=== PATIENT | female | born 1970 | race African-American/Black ===

== ENCOUNTER 2018-11-15 14:49 | Inpatient (IN) | payer OTHER ==
[2018-11-15 17:29] VITALS: BMI 24.0
--- NOTE | 2018-11-15 21:14 | HP ---
CIWA Score Nausea/Vomitin-No Nausea/No Vomiting Muscle Tremors: None Anxiety: 2 Agitation: 2 Paroxysmal Sweats: No Perspiration Orientation: 0-Oriented Tacttile Disturbances: 0-None Auditory Disturbances: 0-None Visual Disturbances: 0-None Headache: 0-None Present CIWA-Ar Total Score: 4 - Admission Criteria OASAS Guidelines: Admission for Medically Managed Detox: Requires at least one of the followin. CIWA greater than 12 2. Seizures within the past 24 hours 3. Delirium tremens within the past 24 hours 4. Hallucinations within the past 24 hours 5. Acute intervention needed for co occurring medical disorder 6. Acute intervention needed for co occurring psychiatric disorder 7. Severe withdrawal that cannot be handled at a lower level of care (continued vomiting, continued diarrhea, abnormal vital signs) requiring intravenous medication and/or fluids 8. Admission ROS [facility] Chief Complaint: rehab admission for alcohol and cocaine 48 yo with h/o HIV, asthma, seizure d/o, HTN, PTSD, depression, schizophrenia, bipolar and personality disorder, was admitted to [facility] in the [facility] for suicide ideation for about 3 days. Was transported here directly from the hospital. Feeling fine. Pt states she would like to do to rehab. CIWA 4- agitated b.c of the wait here. HIV meds- pt's last VL 2K and CD4 500 per pt. restarted meds yesterday at the hospital. need to verify with pharmacy re regimen alcohol- a lot- does not want to specify cocaine $200/day no other illicit drugs DUR- no recent meds Allergies/Adverse Reactions: Allergies Allergy/AdvReac Type Severity Reaction Status Date / Time tomato Allergy Intermediate Rash/Itchin Verified 11/15/18 17:07 ess No Known Drug Allergies Allergy Verified 11/15/18 17:07 - Ebola screening Have you traveled outside of the country in the last 21 days: No (N) Have you had contact with anyone from an Ebola affected area: No Do you have a fever: No Patient History - Patient Medical History Hx Anemia: Yes (NOT CURRENTLY ON IRON PILLS) Hx Asthma: Yes (Tx with Advair & MDI) Hx Chronic Obstructive Pulmonary Disease (COPD): No Hx Cancer: No Hx Cardiac Disorders: No Hx Congestive Heart Failure: No Hx Hypertension: No Hx Hypercholesterolemia: No Hx Pacemaker: No HX Cerebrovascular Accident: No Hx Seizures: No Hx Dementia: No Hx Diabetes: No Hx Gastrointestinal Disorders: No Hx Liver Disease: No Hx Genitourinary Disorders: No Hx Sexually Transmitted Disorders: Yes (SYPHILIS) Hx Renal Disease (ESRD): No Hx Thyroid Disease: No Hx Human Immunodeficiency Virus (HIV): Yes (started taking meds yesterday at hospital) Hx Hepatitis C: No Hx Depression: Yes Hx Suicide Attempt: Yes (Jumped out window "years ago",[place]UTTER 2014) Hx Bipolar Disorder: Yes Hx Schizophrenia: Yes - Patient Surgical History Past Surgical History: No Hx Neurologic Surgery: No Hx Cataract Extraction: No Hx Cardiac Surgery: No Hx Lung Surgery: No Hx Breast Surgery: No Hx Breast Biopsy: No Hx Abdominal Surgery: No Hx Appendectomy: No Hx Cholecystectomy: No Hx Genitourinary Surgery: No Hx Section: No Hx Orthopedic Surgery: No Hx Hysterectomy: No Anesthesia Reaction: No - PPD History Documented Results: Negative w/o proof Date: 11/20/15 Results: NEGATIVE - Reproductive History Last Menstrual Period: 11/05/15 Patient : No - Smoking Cessation Smoking history: Former smoker Have you smoked in the past 12 months: Yes Aproximately how many cigarettes per day: 0 Cigars Per Day: 0 Hx Chewing Tobacco Use: No Initiated information on smoking cessation: Yes 'Breaking Loose' booklet given: 11/15/18 - Substance & Tx. History Hx Alcohol Use: Yes Hx Substance Use: Yes Substance Use Type: Alcohol, Cocaine Hx Substance Use Treatment: Yes - Substances abused Crack Substance route: Smoking Frequency: Daily Amount used: 100 dollars Age of first use: 18 Date of last use: 11/12/18 Alcohol Substance route: Oral Frequency: Daily Amount used: a lot' Age of first use: 21 Date of last use: 11/12/18 Admission Physical Exam [facility] - Vital Signs Vital Signs: Vital Signs - 24 hr 11/15/18 17:22 Temperature 97.6 F Pulse Rate 76 Respiratory 16 Rate Blood Pressure 117/86 Breathalyzer - Breathalyzer Breathalyzer: 0 Urine Drug Screen - Test Device Lot number: [id number] Expiration date: 08/04/20 - Control Is test valid?: Yes - Results Drug screen NEGATIVE: No Urine drug screen results: REBECA-Cocaine Inpatient Rehab Admission - Rehab Decision to Admit Inpatient rehab admission?: Yes - Initial Determination Are CD services needed?: Yes Free of communicable disease: Yes Not in need of hospitalization: Yes - Rehab Admission Criteria Previous failed treatment: Yes Poor recovery environment: Yes Comorbidities: Yes Lacks judgement: Yes Patient is meeting Inpatient Rehab admission criteria:: Yes (cocaine and alcohol rehab)
[2018-11-15] MEDS ORDERED: NICOTINE POLACRILEX 2 MG GUM BC PRN (21:25)
[2018-11-15] MEDS ORDERED: MAGNESIUM CITRATE 300 ML BOTTLE PO PRN (21:25)
[2018-11-15] MEDS ORDERED: hydrOXYzine PAMOATE 25 MG CAPSULE (FP) PO PRN (21:25)
[2018-11-15] MEDS ORDERED: IBUPROFEN 400 MG TABLET (FP) PO PRN (21:25)
[2018-11-15] MEDS ORDERED: ACETAMINOPHEN 325 MG TABLET (FP) PO PRN (21:25)
[2018-11-15] MEDS ORDERED: LOPERAMIDE HCL 2 MG CAPSULE PO PRN (21:25)
[2018-11-15] MEDS ORDERED: guaiFENesin 200 MG/10 ML 10 ML UNIT-DOSE CUPS PO PRN (21:25)
[2018-11-15] MEDS ORDERED: MAG HYDROX/AL HYDROX/SIMETH 30 ML UNIT-DOSE CUP PO PRN (21:25)
[2018-11-15] MEDS ORDERED: MENTHOL/PHENOL 1 EACH UD MM PRN (21:25)
[2018-11-15] MEDS ORDERED: P-EPHED 60MG/TRIPROLIDI 2.5MG TABLET PO PRN (21:25)
[2018-11-15] MEDS ORDERED: MAGNESIUM HYDROX 2400MG/30ML ORAL SUSPENSION 30 ML CUP PO PRN (21:25)
[2018-11-15] MEDS ORDERED: ALBUTEROL SO4 8 GM HFA INHALER IH PRN (21:26)
[2018-11-15] MEDS ORDERED: GABAPENTIN 300 MG CAPSULE (FP) PO PRN (21:29)
[2018-11-15] MEDS ORDERED: GABAPENTIN 300 MG CAPSULE (FP) PO SCH (22:00)
[2018-11-15] MEDS ORDERED: MELATONIN 5 MG TABLETS PO PRN (22:00)
[2018-11-15] MEDS ORDERED: TUBERCULIN PPD 5 TU/0.1ML VIAL ID ONE (22:45)
[2018-11-15] MEDS: QUEtiapine FUMARATE 200 MG TABLET PO SCH (22:47)
[2018-11-15] MEDS: THIAMINE HCL 100 MG TABLET (FP) PO SCH (22:47)
[2018-11-15] MEDS: DIVALPROEX SODIUM 500 MG TABLET E.C. PO SCH (22:47)
[2018-11-16] MEDS ORDERED: PT OWN MED DRAWER 7, Y5N ONE (08:28)
[2018-11-16] MEDS: DIVALPROEX SODIUM 500 MG TABLET E.C. PO SCH ×2 (09:48→21:55)
[2018-11-16] MEDS: HYDROCHLOROTHIAZIDE 12.5 MG CAPSULE (FP) PO SCH (09:49)
[2018-11-16] MEDS: QUEtiapine FUMARATE 200 MG TABLET PO SCH ×2 (09:49→21:55)
[2018-11-16] MEDS: amLODIPine BESYLATE 10 MG TABLET (FP) PO SCH (09:49)
[2018-11-16] MEDS: PRENATAL VITAMINS W/ FOLIC ACID TABLET (FP) PO SCH (09:49)
[2018-11-16] MEDS: EMTRICITAB/RILPIVIRI/TENOF ALA (ODEFSEY) TABLET PO SCH (10:17)
[2018-11-16 12:20] LABS: EPI CELLS 15.9 /HPF (0-5/HPF); HYALINE CASTS 8 /lpf (0-8); URINE APPEARANCE CLOUDY; URINE BACTERIA 85.7 /hpf (NEGATIVE); URINE BILIRUBIN NEGATIVE (NEGATIVE); URINE COLOR YELLOW; URINE GLUCOSE (UA) NEGATIVE (NEGATIVE); URINE KETONE TRACE (NEGATIVE); URINE LEUK ESTERASE 2+ (NEGATIVE); URINE NITRITE NEGATIVE (NEGATIVE); URINE PROTEIN NEGATIVE (NEGATIVE); URINE UROBILINOGEN 0.2 mg/dL (0.2-1.0); URINE WBC 9 /hpf (0-5)
[2018-11-16 12:29] LABS: ALBUMIN 2.8 g/dl (3.4-5.0); BILIRUBIN,TOTAL 0.2 mg/dL (0.2-1); BLOOD UREA NITROGEN 19.4 mg/dL (7-18); CALCIUM 9.5 mg/dL (8.5-10.1); CREATININE 0.9 mg/dL (0.55-1.3); POTASSIUM 4.2 mmol/L (3.5-5.1); TOT PROT 6.9 g/dl (6.4-8.2)
[2018-11-16 12:36] LABS: HEMATOCRIT 36.3 % (32.4-45.2); HEMOGLOBIN 11.8 GM/dL (10.7-15.3); MCH 30.7 pg (25.7-33.7); MCHC 32.6 g/dl (32.0-36.0); MEAN PLT VOLUME 8.2 fl (7.5-11.1); RBC 3.86 M/mm3 (3.60-5.2); RDW 16.7 % (11.6-15.6); WHITE BLOOD COUNT 4.3 K/mm3 (4.0-10.0)
[2018-11-16 12:39] LABS: URINE CRYSTALS 3+ /hpf; URINE RBC 2 /hpf (0-4)
[2018-11-16 12:40] LABS: PLATELET COUNT 190 K/MM3 (134-434)
[2018-11-16] MEDS: THIAMINE HCL 100 MG TABLET (FP) PO SCH (21:56)
--- NOTE | 2018-11-17 09:04 | CONSULT ---
[facility] Psychiatric Consult - Data Date of interview: 11/17/18 Admission source: [facility] Identifying data: Patient is a 48 year old single female, without children, unemployed, and is supported by [employer]. This is one of multiple admissions for patient. Patient admitted to for alcohol dependence. Substance Abuse History: Smoking Cessation. Smoking history: Former smoker. Have you smoked in the past 12 months: Yes. Aproximately how many cigarettes per day: 0. Cigars Per Day: 0. Hx Chewing Tobacco Use: No. Initiated information on smoking cessation: Yes. 'Breaking Loose' booklet given: . - Substance & Tx. History. Hx Alcohol Use: Yes. Hx Substance Use: Yes. Substance Use Type: Alcohol, Cocaine. Hx Substance Use Treatment: Yes. - Substances abused. Crack. Substance route: Smoking. Frequency: Daily. Amount used: 100 dollars. Age of first use: 18. Date of last use: 11/12/18. * * Alcohol. Substance route: Oral. Frequency: Daily. Amount used: a lot'. Age of first use: 21. Date of last use: 11/12/18 Medical History: h/o HIV, asthma, seizure d/o, HTN Psychiatric History: Patient presents as irritable and is unwilling to provide a cohesive psychiatric history. Patient reports h/o multiple psychiatric hospitalizations. States she was recently in the [facility] a few days ago after stating she was suicidal because she wanted to be admitted to the detox/rehab unit [facility]. Subsequently she was transferred to [facility] rehab. She reports past diagnosis of personality disorder, PTSD, Biplar disorder and schizophrenia. She denies current outpatient psychiatric care. States she receives psychotropic medications from her primary care physician. Patient presents with a convoluted history and is irritable which make it difficult to obtain a cohesive history. Patient reports taking seroquel 400mg BID + Depakote 500mg ER BID + Gabapentin 300mg TID (medications bottle witness by communications writer in the security office). At present patient is irritable. Physical/Sexual Abuse/Trauma History: Decline to answer. Mental Status Exam - Mental Status Exam Alert and Oriented to: Time, Place, Person Cognitive Function: Fair Patient Appearance: Unkempt Mood: Irritable Affect: Mood Congruent Patient Behavior: Agitated (Agitated and irritable and redirectable) Speech Pattern: Clear Voice Loudness: Normal Thought Process: Goal Oriented Thought Disorder: Not Present Hallucinations: Denies Suicidal Ideation: Denies Homicidal Ideation: Denies Insight/Judgement: Poor Sleep: Fair Appetite: Fair Muscle strength/Tone: Normal Gait/Station: Normal Psychiatric Findings - Problem List ([place] 1, 2,3) (1) Alcohol dependence Current Visit: Yes Status: Chronic (2) Cocaine dependence Current Visit: Yes Status: Chronic (3) Bipolar disorder Current Visit: Yes Status: Chronic (4) Substance induced mood disorder Current Visit: Yes Status: Acute - Initial Treatment Plan Initial Treatment Plan: Psychoeducation provided. Rehab in progress. Will continue Seroquel 400mg BID + Depakote 500mg ER BID + Gabapentin 300mg TID. Medications verified by witnessing medications bottle in the Security office. Benefits and side effects discussed. Verbal consent given.
[2018-11-17] MEDS: QUEtiapine FUMARATE 200 MG TABLET PO SCH ×2 (09:38→21:57)
[2018-11-17] MEDS: DIVALPROEX SODIUM 500 MG TABLET E.C. PO SCH (09:39)
[2018-11-17] MEDS: HYDROCHLOROTHIAZIDE 12.5 MG CAPSULE (FP) PO SCH (09:39)
[2018-11-17] MEDS: amLODIPine BESYLATE 10 MG TABLET (FP) PO SCH (09:39)
[2018-11-17] MEDS: PRENATAL VITAMINS W/ FOLIC ACID TABLET (FP) PO SCH (09:39)
[2018-11-17] MEDS: EMTRICITAB/RILPIVIRI/TENOF ALA (ODEFSEY) TABLET PO SCH (09:40)
[2018-11-17] MEDS: THIAMINE HCL 100 MG TABLET (FP) PO SCH (21:56)
[2018-11-17] MEDS: DIVALPROEX NA *ER* EXTEND REL 500 MG TABLET.SA (FP) PO SCH (21:57)
--- NOTE | 2018-11-18 10:03 | PN ---
[facility] Progress Note Note: METHADONE 80 MG PO DAILY RENEWED. METHADONE 80 MG PO X 1 DOSE TODAY. Vital Signs - 24 hr 11/18/18 11/18/18 11/18/18 00:30 03:30 07:13 Pulse Rate Respiratory 17 16 16 Rate Blood Pressure 11/18/18 09:19 Pulse Rate 80 Respiratory 18 Rate Blood Pressure 120/82 Laboratory Tests 11/15/18 11/16/18 11/16/18 20:30 09:20 09:20 WBC 4.3 RBC 3.86 Hgb 11.8 Hct 36.3 MCV 94.0 MCH 30.7 MCHC 32.6 RDW 16.7 H Plt Count 190 MPV 8.2 Sodium 139 Potassium 4.2 Chloride 102 Carbon Dioxide 29 Anion Gap 7 L BUN 19.4 H Creatinine 0.9 Est GFR (CKD-EPI)AfAm 88.25 Est GFR (CKD-EPI)NonAf 76.14 Random Glucose 109 H Calcium 9.5 Total Bilirubin 0.2 AST 38 H ALT 40 Alkaline Phosphatase 92 Total Protein 6.9 Albumin 2.8 L Urine Color Urine Appearance Urine pH Ur Specific [place] Urine Protein Urine Glucose (UA) Urine Ketones Urine Blood Urine Nitrite Urine Bilirubin Urine Urobilinogen Ur Leukocyte Esterase Urine WBC (Auto) Urine RBC (Auto) Urine Casts (Auto) U Epithel Cells (Auto) Urine Crystals (Auto) Urine Bacteria (Auto) POC Urine HCG, Qual Negative RPR Titer 11/16/18 11/16/18 09:20 10:00 WBC RBC Hgb Hct MCV MCH MCHC RDW Plt Count MPV Sodium Potassium Chloride Carbon Dioxide Anion Gap BUN Creatinine Est GFR (CKD-EPI)AfAm Est GFR (CKD-EPI)NonAf Random Glucose Calcium Total Bilirubin AST ALT Alkaline Phosphatase Total Protein Albumin Urine Color Yellow Urine Appearance Cloudy Urine pH 6.0 Ur Specific [place] 1.029 Urine Protein Negative Urine Glucose (UA) Negative Urine Ketones Trace H Urine Blood Negative Urine Nitrite Negative Urine Bilirubin Negative Urine Urobilinogen 0.2 Ur Leukocyte Esterase 2+ H Urine WBC (Auto) 9 Urine RBC (Auto) 2 Urine Casts (Auto) 8 U Epithel Cells (Auto) 15.9 Urine Crystals (Auto) 3+ Urine Bacteria (Auto) 85.7 POC Urine HCG, Qual RPR Titer Nonreactive LABS NOTED ASYMPTOMATIC INCREASE PO FLUIDS REPEAT UA.
[2018-11-18] MEDS: PRENATAL VITAMINS W/ FOLIC ACID TABLET (FP) PO SCH (10:05)
[2018-11-18] MEDS: DIVALPROEX NA *ER* EXTEND REL 500 MG TABLET.SA (FP) PO SCH ×2 (10:05→21:31)
[2018-11-18] MEDS: QUEtiapine FUMARATE 200 MG TABLET PO SCH ×2 (10:06→21:30)
[2018-11-18] MEDS: HYDROCHLOROTHIAZIDE 12.5 MG CAPSULE (FP) PO SCH (10:06)
[2018-11-18] MEDS: amLODIPine BESYLATE 10 MG TABLET (FP) PO SCH (10:06)
[2018-11-18] MEDS ORDERED: PT OWN MED DRAWER 7, Y5N ONE (10:08)
[2018-11-18] MEDS: EMTRICITAB/RILPIVIRI/TENOF ALA (ODEFSEY) TABLET PO SCH (10:08)
[2018-11-18 19:50] LABS: EPI CELLS 3.9 /HPF (0-5/HPF); HYALINE CASTS 0 /lpf (0-8); PH,URINE 5.5 (5.0-8.0); URINE APPEARANCE CLEAR; URINE BACTERIA 29.6 /hpf (NEGATIVE); URINE BILIRUBIN NEGATIVE (NEGATIVE); URINE COLOR YELLOW; URINE GLUCOSE (UA) NEGATIVE (NEGATIVE); URINE KETONE NEGATIVE (NEGATIVE); URINE LEUK ESTERASE TRACE (NEGATIVE); URINE NITRITE NEGATIVE (NEGATIVE); URINE PROTEIN NEGATIVE (NEGATIVE); URINE RBC 1 /hpf (0-4); URINE UROBILINOGEN 0.2 mg/dL (0.2-1.0); URINE WBC 2 /hpf (0-5)
[2018-11-18] MEDS: THIAMINE HCL 100 MG TABLET (FP) PO SCH (21:30)
[2018-11-19] MEDS ORDERED: PT OWN MED DRAWER 7, Y5N ONE (08:44)
[2018-11-19] MEDS: QUEtiapine FUMARATE 200 MG TABLET PO SCH ×2 (09:30→21:36)
[2018-11-19] MEDS: amLODIPine BESYLATE 10 MG TABLET (FP) PO SCH (09:31)
[2018-11-19] MEDS: PRENATAL VITAMINS W/ FOLIC ACID TABLET (FP) PO SCH (09:31)
[2018-11-19] MEDS: HYDROCHLOROTHIAZIDE 12.5 MG CAPSULE (FP) PO SCH (09:31)
[2018-11-19] MEDS: DIVALPROEX NA *ER* EXTEND REL 500 MG TABLET.SA (FP) PO SCH ×2 (09:31→21:36)
[2018-11-19] MEDS: EMTRICITAB/RILPIVIRI/TENOF ALA (ODEFSEY) TABLET PO SCH (09:33)
[2018-11-19] MEDS: THIAMINE HCL 100 MG TABLET (FP) PO SCH (21:35)
[2018-11-20] MEDS: QUEtiapine FUMARATE 200 MG TABLET PO SCH ×2 (09:28→21:14)
[2018-11-20] MEDS: EMTRICITAB/RILPIVIRI/TENOF ALA (ODEFSEY) TABLET PO SCH (09:28)
[2018-11-20] MEDS: DIVALPROEX NA *ER* EXTEND REL 500 MG TABLET.SA (FP) PO SCH ×2 (09:28→21:14)
[2018-11-20] MEDS: PRENATAL VITAMINS W/ FOLIC ACID TABLET (FP) PO SCH (09:28)
[2018-11-20] MEDS: HYDROCHLOROTHIAZIDE 12.5 MG CAPSULE (FP) PO SCH (09:28)
[2018-11-20] MEDS: amLODIPine BESYLATE 10 MG TABLET (FP) PO SCH (09:28)
[2018-11-20] MEDS ORDERED: PT OWN MED DRAWER 7, Y5N ONE ×2 (19:42→22:01)
[2018-11-20] MEDS: THIAMINE HCL 100 MG TABLET (FP) PO SCH (21:14)
[2018-11-21 07:02] VITALS: PULSE 88; TEMP 97.4
[2018-11-21 11:05] VITALS: BP 95/67
[2018-11-21] MEDS: HYDROCHLOROTHIAZIDE 12.5 MG CAPSULE (FP) PO SCH (11:39)
[2018-11-21] MEDS: DIVALPROEX NA *ER* EXTEND REL 500 MG TABLET.SA (FP) PO SCH (11:39)
[2018-11-21] MEDS: amLODIPine BESYLATE 10 MG TABLET (FP) PO SCH (11:40)
[2018-11-21] MEDS: PRENATAL VITAMINS W/ FOLIC ACID TABLET (FP) PO SCH (11:40)
[2018-11-21] MEDS: QUEtiapine FUMARATE 200 MG TABLET PO SCH (11:40)
[2018-11-21] MEDS: EMTRICITAB/RILPIVIRI/TENOF ALA (ODEFSEY) TABLET PO SCH (11:40)
--- NOTE | 2018-11-21 11:57 | PN ---
[facility] Progress Note Note: Notified by RN patient requested to sign out AMA. Patient evaluated by provider and stated she has a rash/itching and wants to be seen/treated by her regular provider/PCP Dr. Quintana. Patient encouraged to continue with rehab treatment for ETOH/Cocaine dependence but patient refused. Patient does not have visible rash on extremities and or face but offered soap/cream for symptoms. Patient refused and verbalized preference to see PCP. Patient encouraged to attend group meetings AA/NA and to follow up with PCP today. Patient also explained risk factors of relapse with signing out AMA and verbalized understanding of all information provided. Patient continued with AMA process after speaking with provider. Vital Signs Temperature 97.4 F L 11/21/18 07:02 Pulse Rate 88 11/21/18 10:00 Respiratory Rate 18 11/21/18 07:02 Blood Pressure 95/67 11/21/18 10:00 O2 Sat by Pulse Oximetry (%) Laboratory Tests 11/15/18 11/16/18 11/16/18 20:30 09:20 09:20 WBC 4.3 RBC 3.86 Hgb 11.8 Hct 36.3 MCV 94.0 MCH 30.7 MCHC 32.6 RDW 16.7 H Plt Count 190 MPV 8.2 Sodium 139 Potassium 4.2 Chloride 102 Carbon Dioxide 29 Anion Gap 7 L BUN 19.4 H Creatinine 0.9 Est GFR (CKD-EPI)AfAm 88.25 Est GFR (CKD-EPI)NonAf 76.14 Random Glucose 109 H Calcium 9.5 Total Bilirubin 0.2 AST 38 H ALT 40 Alkaline Phosphatase 92 Total Protein 6.9 Albumin 2.8 L Urine Color Urine Appearance Urine pH Ur Specific [place] Urine Protein Urine Glucose (UA) Urine Ketones Urine Blood Urine Nitrite Urine Bilirubin Urine Urobilinogen Ur Leukocyte Esterase Urine WBC (Auto) Urine RBC (Auto) Urine Casts (Auto) U Epithel Cells (Auto) Urine Crystals (Auto) Urine Bacteria (Auto) POC Urine HCG, Qual Negative RPR Titer 11/16/18 11/16/18 11/18/18 09:20 10:00 15:15 WBC RBC Hgb Hct MCV MCH MCHC RDW Plt Count MPV Sodium Potassium Chloride Carbon Dioxide Anion Gap BUN Creatinine Est GFR (CKD-EPI)AfAm Est GFR (CKD-EPI)NonAf Random Glucose Calcium Total Bilirubin AST ALT Alkaline Phosphatase Total Protein Albumin Urine Color Yellow Yellow Urine Appearance Cloudy Clear Urine pH 6.0 5.5 Ur Specific [place] 1.029 1.022 Urine Protein Negative Negative Urine Glucose (UA) Negative Negative Urine Ketones Trace H Negative Urine Blood Negative Negative Urine Nitrite Negative Negative Urine Bilirubin Negative Negative Urine Urobilinogen 0.2 0.2 Ur Leukocyte Esterase 2+ H Trace Urine WBC (Auto) 9 2 Urine RBC (Auto) 2 1 Urine Casts (Auto) 8 0 U Epithel Cells (Auto) 15.9 3.9 Urine Crystals (Auto) 3+ Urine Bacteria (Auto) 85.7 29.6 POC Urine HCG, Qual RPR Titer Nonreactive
== END 2018-11-21 12:20 | disposition home or self-care (01) | DRG 772 ==
LOC: YASAS 14:49 → Y3E 21:47
PROVIDERS: ADMIT Neuromusculoskeletal Medicine & OMM; ATTEND Neuromusculoskeletal Medicine & OMM
PROC: HZ42ZZZ Group Counseling for Substance Abuse Treatment, Cognitive-Behavioral (ICD-10-PCS; principal; 2018-11-15)
DX: F10.20 Alcohol dependence, uncomplicated (principal); F14.20 Cocaine dependence, uncomplicated; F19.24 Other psychoactive substance dependence with psychoactive substance-induced mood disorder; F12.20 Cannabis dependence, uncomplicated; F31.9 Bipolar disorder, unspecified; F43.10 Post-traumatic stress disorder, unspecified; F60.9 Personality disorder, unspecified; Z21 Asymptomatic human immunodeficiency virus [HIV] infection status; I10 Essential (primary) hypertension; J45.909 Unspecified asthma, uncomplicated; D64.9 Anemia, unspecified; Z86.19 Personal history of other infectious and parasitic diseases; G40.909 Epilepsy, unspecified, not intractable, without status epilepticus; Z91.5 Personal history of self-harm
CPT/HCPCS: 36415; 80053; 81003; 81025; 85027; 86593

== ENCOUNTER 2019-12-23 11:28 | Inpatient (IN) | payer OTHER ==
--- NOTE | 2019-12-23 13:45 | BHS.RME ---
Substance Use & Tx History - Substance Use History Alcohol Substance amount: 4 pints of vodka Frequency of use: Daily Substance route: Oral Date of Last Use: 12/22/19 Cocaine-Crack Frequency of use: Daily Substance route: Smoking Date of Last Use: 12/22/19 - Last Treatment [facility] Where was last treatment: Detox Physical/Psych/Mental Status - Behavior Eye Contact: Normal - Cooperativeness Cooperativeness: Cooperative - Thinking Thought Processes: Logical Thought content: Future oriented - Physical Health Problems Is patient presently having any pain?: No Does patient presently have any injuries (include location): No Does patient currently have a fever: No CIWA Nausea/Vomitin Muscle Tremors: 2 Anxiety: 3 Agitation: 3 Paroxysmal Sweats: No Perspiration Orientation: 0-Oriented Tacttile Disturbances: 1-Very Mild Itch/Numbness Auditory Disturbances: 0-None Visual Disturbances: 0-None Headache: 2-Mild CIWA-Ar Total Score: 13
--- NOTE | 2019-12-23 13:56 | HP ---
CIWA Score Nausea/Vomitin Muscle Tremors: 2 Anxiety: 3 Agitation: 3 Paroxysmal Sweats: No Perspiration Orientation: 0-Oriented Tacttile Disturbances: 1-Very Mild Itch/Numbness Auditory Disturbances: 0-None Visual Disturbances: 0-None Headache: 2-Mild CIWA-Ar Total Score: 13 - Admission Criteria OASAS Guidelines: Admission for Medically Managed Detox: Requires at least one of the followin. CIWA greater than 12 2. Seizures within the past 24 hours 3. Delirium tremens within the past 24 hours 4. Hallucinations within the past 24 hours 5. Acute intervention needed for co occurring medical disorder 6. Acute intervention needed for co occurring psychiatric disorder 7. Severe withdrawal that cannot be handled at a lower level of care (continued vomiting, continued diarrhea, abnormal vital signs) requiring intravenous medication and/or fluids 8. Admitting History and Physical - Admission Chief Complaint: i need help to stop drinking alcohol,cociane History of Present Illness: this 49 years old female with alcohol and cocaine dependence seeking detox,withdrawal symptom, seeking detox History Source: Patient Limitations to Obtaining History: No Limitations - Past Medical History Cardiovascular: Yes: HTN Pulmonary: Yes: Asthma ...LMP: 11/05/15 ...: No Psych: Yes: Schizophrenia - Past Surgical History Additional Past Surgical History: no surgery - Smoking History Smoking history: Current some day smoker Have you smoked in the past 12 months: Yes Aproximately how many cigarettes per day: 20 - Alcohol/Substance Use Hx Alcohol Use: Yes History of Substance Use: reports: Cocaine - Social History Usual Living Arrangement: Yes: Other (hoemeless) Do you think of yourself as: Straight/Heterosexual Occupation: ubemployed History of Recent Travel: No Other Social History: unemployed,legal isssue to go to court 01/01/20 for order trotection,. 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 Admission ROS [facility] - HPI Chief Complaint: i need help to stop drinke alcohol,cocaine abused Allergies/Adverse Reactions: Allergies Allergy/AdvReac Type Severity Reaction Status Date / Time doxycycline Allergy Intermediate Rash Verified 12/23/19 14:24 tomato Allergy Intermediate Rash/Itchin Verified 12/23/19 14:24 ess History of Present Illness: this 49 years old female patient with alcohol dependence also cocaine dependence seeking detox,withdrawal symptom alcohol related seizure hearing loss left seen at [facility] yesterday for head injury longest sobriety 6 years hiv nicotine dependence homeless,unemployed,legal issue for protection plan for out patient program Exam Limitations: No Limitations - Ebola screening Have you traveled outside of the country in the last 21 days: No Have you been sick,other than usual withdrawal symptoms: No Do you have a fever: No - Review of Systems Constitutional: Loss of Appetite, Malaise, Night Sweats, Changes in sleep, Weakness, Unintentional Wgt. Loss EENT: reports: Tearing, Nose Congestion Respiratory: reports: Other (asthma) Cardiac: reports: No Symptoms Reported GI: reports: Nausea, Poor Appetite, Abdominal cramping : reports: No Symptoms Reported Musculoskeletal: reports: Back Pain, Muscle Pain Integumentary: reports: Dryness Neuro: reports: Tremors Endocrine: reports: No Symptoms Reported Hematology: reports: No Symptoms Reported Psychiatric: reports: No Sypmtoms Reported, Judgement Intact, Mood/Affect Appropiate, Orientated x3, Anxious, Depressed, other (schizophrenia) Other Systems: Reviewed and Negative Patient History - Patient Medical History Hx Anemia: Yes (NOT CURRENTLY ON IRON PILLS) Hx Asthma: Yes (on albuterol inhaler and symbicort) Hx Chronic Obstructive Pulmonary Disease (COPD): No Hx Cancer: No Hx Cardiac Disorders: No Hx Congestive Heart Failure: No Hx Hypertension: Yes (on med) Hx Hypercholesterolemia: No Hx Pacemaker: No HX Cerebrovascular Accident: No Hx Seizures: Yes Hx Dementia: No Hx Diabetes: No Hx Gastrointestinal Disorders: No Hx Liver Disease: No Hx Genitourinary Disorders: No Hx Sexually Transmitted Disorders: No Hx Renal Disease (ESRD): No Hx Thyroid Disease: No Hx Human Immunodeficiency Virus (HIV): Yes (started taking meds yesterday at hospital) Hx Hepatitis C: No Hx Depression: Yes Hx Suicide Attempt: Yes Hx Bipolar Disorder: Yes Hx Schizophrenia: Yes Other Medical History: no sucidal,no homicidal - Patient Surgical History Past Surgical History: No Hx Neurologic Surgery: No Hx Cataract Extraction: No Hx Cardiac Surgery: No Hx Lung Surgery: No Hx Breast Surgery: No Hx Breast Biopsy: No Hx Abdominal Surgery: No Hx Appendectomy: No Hx Cholecystectomy: No Hx Genitourinary Surgery: No Hx Section: No Hx Orthopedic Surgery: No Hx Hysterectomy: No Anesthesia Reaction: No - PPD History Previous Implant?: Yes Documented Results: Negative w/o proof Implanted On Prior R Admission?: Yes Date: 11/17/18 Results: NEGATIVE PPD to be Administered?: Yes - Reproductive History Patient is a Female of Child Bearing Age (11 -55 yrs old): Yes Last Menstrual Period: 11/05/15 Patient : No - Smoking Cessation Smoking history: Current every day smoker Have you smoked in the past 12 months: Yes Aproximately how many cigarettes per day: 20 Cigars Per Day: 0 Hx Chewing Tobacco Use: No Initiated information on smoking cessation: Yes 'Breaking Loose' booklet given: 12/23/19 - Substance & Tx. History Hx Alcohol Use: Yes Hx Substance Use: Yes Substance Use Type: Alcohol, Cocaine Hx Substance Use Treatment: Yes ([facility] 11/2019) - Substances abused Alcohol Substance route: Oral Frequency: Daily Amount used: 4pints of vodka Age of first use: 21 Date of last use: 12/22/19 Crack Substance route: Smoking Amount used: 100$ Age of first use: Date of last use: 12/22/19 Admission Physical Exam S - Vital Signs Vital Signs: Vital Signs Temperature 97.5 F L 12/23/19 14:24 Pulse Rate 82 12/23/19 14:24 Respiratory Rate 18 12/23/19 14:24 Blood Pressure 165/103 H 12/23/19 14:24 O2 Sat by Pulse Oximetry (%) - Physical General Appearance: Yes: Moderate Distress, Tremorous, Irritable, Sweating, Anxious HEENTM: Yes: Normal ENT Inspection, JONO, Pharynx Normal, Other (hearing loss left) Respiratory: Yes: Lungs Clear, Normal Breath Sounds, No Respiratory Distress Neck: Yes: Within Normal Limits, Supple, Trachea in good position Breast: Yes: Breast Exam Deferred Cardiology: Yes: Within Normal Limits, Regular Rhythm, Regular Rate, S1, S2 Abdominal: Yes: Within Normal Limits, Normal Bowel Sounds, Non Tender, Soft Genitourinary: Yes: Within Normal Limits Back: Yes: Muscle Spasm Musculoskeletal: Yes: Back pain, Muscle Pain Extremities: Yes: Normal Range of Motion, Tremors 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 intact, Fully Oriented, Alert, Motor Strength 5/5 Integumentary: Yes: Dry Lymphatic: Yes: Within Normal Limits - Diagnostic (1) Alcohol dependence with uncomplicated withdrawal Current Visit: No Status: Acute (2) Cocaine dependence Current Visit: No Status: Acute (3) Nicotine dependence Current Visit: No Status: Acute (4) Weight loss Current Visit: No Status: Acute (5) Cocaine dependence Current Visit: No Status: Chronic (6) Hearing loss, left Current Visit: No Status: Chronic (7) Human immunodeficiency virus infection Current Visit: No Status: Chronic (8) Alcohol related seizure Current Visit: No Status: Suspected (9) History of head injury Current Visit: Yes Status: Acute (10) Asthma Current Visit: Yes Status: Acute (11) Hypertension Current Visit: Yes Status: Acute (12) Hypercholesteremia Current Visit: Yes Status: Acute Cleared for Admission [facility] - Detox or Rehab S Level of Care: Medically Managed Detox Regimen/Protocol: Librium Breathalyzer - Breathalyzer Breathalyzer: 0 Urine Drug Screen - Test Device Lot number: [id number] Expiration date: 08/04/20 - Control Is test valid?: Yes - Results Drug screen NEGATIVE: No Urine drug screen results: REBECA-Cocaine Inpatient Rehab Admission - Rehab Decision to Admit Inpatient rehab admission?: No
[2019-12-23] MEDS ORDERED: MENTHOL/PHENOL 1 EACH UD MM PRN (14:14)
[2019-12-23] MEDS ORDERED: METHOCARBAMOL 500 MG TABLET PO PRN (14:14)
[2019-12-23] MEDS ORDERED: BISMUTH SUBSALICYLATE 524 MG/30 ML UD PO PRN (14:14)
[2019-12-23] MEDS ORDERED: MAG HYDROX/AL HYDROX/SIMETH 30 ML UNIT-DOSE CUP PO PRN (14:14)
[2019-12-23] MEDS ORDERED: chlordiazePOXIDE HCL 25 MG CAPSULE PO PRN (14:14)
[2019-12-23] MEDS ORDERED: NICOTINE POLACRILEX 2 MG GUM BUC PRN (14:14)
[2019-12-23] MEDS ORDERED: MAGNESIUM CITRATE 300 ML BOTTLE PO PRN (14:14)
[2019-12-23] MEDS ORDERED: ACETAMINOPHEN 325 MG TABLET (FP) PO PRN ×2 (14:14)
[2019-12-23] MEDS ORDERED: ONDANSETRON *ODT* 4 MG TABLET SL ONE (14:14)
[2019-12-23] MEDS ORDERED: IBUPROFEN 400 MG TABLET (FP) PO PRN (14:14)
[2019-12-23] MEDS ORDERED: MAGNESIUM HYDROX 2400MG/30ML ORAL SUSPENSION 30 ML CUP PO PRN (14:14)
[2019-12-23 14:32] VITALS: BMI 24.2
[2019-12-23] MEDS ORDERED: ALBUTEROL SO4 HFA INHALER IH PRN (15:48)
[2019-12-23] MEDS: chlordiazePOXIDE HCL 25 MG CAPSULE PO SCH ×2 (17:57→22:18)
[2019-12-23] MEDS: hydrOXYzine PAMOATE 25 MG CAPSULE (FP) PO SCH ×2 (17:58→22:18)
[2019-12-23] MEDS: GABAPENTIN 300 MG CAPSULE PO SCH (22:18)
[2019-12-23] MEDS: THIAMINE HCL 100 MG TABLET (FP) PO SCH (22:18)
[2019-12-23] MEDS: MELATONIN 5 MG TABLETS PO SCH (22:19)
[2019-12-23] MEDS: BUDESONIDE/FORMETEROL FUMARATE 160/4.5 mcg INHALER IH SCH (22:21)
[2019-12-24] MEDS: chlordiazePOXIDE HCL 25 MG CAPSULE PO SCH ×4 (06:16→22:12)
[2019-12-24] MEDS: GABAPENTIN 300 MG CAPSULE PO SCH ×3 (06:17→22:12)
[2019-12-24] MEDS: hydrOXYzine PAMOATE 25 MG CAPSULE (FP) PO SCH ×5 (06:17→22:12)
--- NOTE | 2019-12-24 10:08 | CONSULT ---
[facility] Psychiatric Consult - Data Date of interview: 12/24/19 Admission source: [facility] Identifying data: Patient is a 49 year old single female, without children, unemployed, supported by [employer] and [employer] benefits. This is one of multiple admissions for patient. Patient admitted to for alcohol and cocaine dependence. Substance Abuse History: - Smoking Cessation. Smoking history: Current every day smoker. Have you smoked in the past 12 months: Yes. Aproximately how many cigarettes per day: 20. Cigars Per Day: 0. Hx Chewing Tobacco Use: No. Initiated information on smoking cessation: Yes. 'Breaking Loose' booklet given: 12/23/19. - Substance & Tx. History. Hx Alcohol Use: Yes. Hx Substance Use: Yes. Substance Use Type: Alcohol, Cocaine. Hx Substance Use Treatment: Yes ([facility] 11/2019). - Substances abused. Alcohol. Substance route: Oral. Frequency: Daily. Amount used: 4pints of vodka. Age of first use: 21. Date of last use: 12/22/19. Crack. Substance route: Smoking. Amount used: 100$. Age of first use: 21. Date of last use: 12/22/19 Medical History: h/o HIV, asthma, seizure d/o, HTN Psychiatric History: Ms. Long reports history of multiple psychiatric hospitalizations including but not limited to [facility], [facility] and most recently last year at [facility] for mood instability. Mr. Long reports a diagnosis of Bipolar disorder, schizophrenia, and PTSD. Patient with several admissions to detox at current facility. Patient seen by race and sports book writer in November of 2018 and was prescribed seroquel 400mg BID + Depakote 500mg BID ER + Gabapentin 300mg TID. Patient stated that she is no longer on depakote and is prescribed Seroquel 100mg daily + Seroquel 300mg HS + Gabapentin 600mg TID by her [facility] physician. Patient denies current outpatient psychiatric care. History of multiple suicide attempts by self mutilation. At present, Ms. Long presents as irritable and restless. Patient denies suicidal/homicidal ideation. Physical/Sexual Abuse/Trauma History: Not discussed. Mental Status Exam - Mental Status Exam Alert and Oriented to: Time, Place, Person Cognitive Function: Good Patient Appearance: Unkempt Mood: Anxious, Irritable Affect: Mood Congruent Patient Behavior: Fatigued, Agitated (slightly agitated.) Speech Pattern: Appropriate Voice Loudness: Normal Thought Process: Goal Oriented Thought Disorder: Not Present Hallucinations: Denies Suicidal Ideation: Denies Homicidal Ideation: Denies Insight/Judgement: Poor Sleep: Poorly Appetite: Fair Muscle strength/Tone: Normal Gait/Station: Normal Psychiatric Findings - Problem List ([place] 1, 2,3) (1) Schizoaffective disorder Status: Suspected (2) Alcohol dependence with uncomplicated withdrawal Status: Chronic (3) Cocaine dependence Status: Acute (4) Nicotine dependence Status: Chronic Qualifiers: Nicotine product type: cigarettes Substance use status: uncomplicated Qualified Code(s): F17.210 - Nicotine dependence, cigarettes, uncomplicated (5) Substance induced mood disorder Status: Acute (6) Bipolar disorder Status: Chronic - Initial Treatment Plan Initial Treatment Plan: Psychoeducation provided. Detoxification in progress. Will order Seroquel 100mg daily + Seroquel 300mg HS. Benefits and side effects discussed. Verbal consent given.
[2019-12-24] MEDS: BUDESONIDE/FORMETEROL FUMARATE 160/4.5 mcg INHALER IH SCH ×2 (10:14→23:07)
[2019-12-24] MEDS: HYDROCHLOROTHIAZIDE 12.5 MG CAPSULE (FP) PO SCH (10:15)
[2019-12-24] MEDS: amLODIPine BESYLATE 10 MG TABLET (FP) PO SCH (10:15)
[2019-12-24] MEDS: NICOTINE 7 MG/24 HOURS TOPICAL PATCH TD SCH (10:15)
[2019-12-24] MEDS: PRENATAL VITAMINS W/ FOLIC ACID TABLET (FP) PO SCH (10:15)
[2019-12-24] MEDS: QUEtiapine FUMARATE 100 MG TABLET (FP) PO SCH (11:36)
[2019-12-24] MEDS: busPIRone HCL 10 MG TABLET (FP) PO SCH ×2 (11:36→22:13)
[2019-12-24 12:06] LABS: HEMATOCRIT 38.5 % (32.4-45.2); HEMOGLOBIN 12.9 GM/dL (10.7-15.3); MCH 32.5 pg (25.7-33.7); MCHC 33.6 g/dl (32.0-36.0); MEAN CELL VOLUME 96.7 fl (80-96); MEAN PLT VOLUME 8.6 fl (7.5-11.1); PLATELET COUNT 244 K/MM3 (134-434); RBC 3.98 M/mm3 (3.60-5.2); RDW 15.5 % (11.6-15.6); WHITE BLOOD COUNT 4.4 K/mm3 (4.0-10.0)
[2019-12-24] MEDS: BICTEGRAV/EMTRICIT/TENOFOV (BIKTARVY) 50-200-25 MG TABLET PO SCH (12:07)
[2019-12-24 12:21] LABS: ALBUMIN 3.2 g/dl (3.4-5.0); BILIRUBIN,TOTAL 0.8 mg/dL (0.2-1); BLOOD UREA NITROGEN 15.5 mg/dL (7-18); CALCIUM 8.8 mg/dL (8.5-10.1); CREATININE 0.8 mg/dL (0.55-1.3); POTASSIUM 3.7 mmol/L (3.5-5.1); TOT PROT 7.2 g/dl (6.4-8.2)
--- NOTE | 2019-12-24 13:56 | PN ---
[facility] CIWA - CIWA Score Nausea/Vomitin-Mild Nausea/No Vomiting Muscle Tremors: 2 Anxiety: 2 Agitation: 2 Paroxysmal Sweats: 2 Orientation: 0-Oriented Tacttile Disturbances: 0-None Auditory Disturbances: 0-None Visual Disturbances: 0-None Headache: 0-None Present CIWA-Ar Total Score: 9 S Progress Note (SOAP) Subjective: Feels ok Objective: 12/24/19 13:56 Last Vital Signs Temp Pulse Resp BP Pulse Ox 97.5 F L 110 H 16 126/78 97 12/24/19 13:12 12/24/19 13:12 12/24/19 13:12 12/24/19 13:12 12/24/19 13:12 Tachycardia noted: most likely due to withdrawal Laboratory Tests 12/24/19 12/24/19 12/24/19 07:25 07:25 07:25 WBC 4.4 RBC 3.98 Hgb 12.9 Hct 38.5 MCV 96.7 H MCH 32.5 MCHC 33.6 RDW 15.5 Plt Count 244 D MPV 8.6 Sodium 139 Potassium 3.7 Chloride 104 Carbon Dioxide 26 Anion Gap 8 BUN 15.5 Creatinine 0.8 Est GFR (CKD-EPI)AfAm 101.04 Est GFR (CKD-EPI)NonAf 87.18 Random Glucose 134 H Calcium 8.8 Total Bilirubin 0.8 AST 39 H ALT 38 Alkaline Phosphatase 82 Total Protein 7.2 Albumin 3.2 L Syphilis Serology Reactive A* RPR Titer 12/24/19 07:25 WBC RBC Hgb Hct MCV MCH MCHC RDW Plt Count MPV Sodium Potassium Chloride Carbon Dioxide Anion Gap BUN Creatinine Est GFR (CKD-EPI)AfAm Est GFR (CKD-EPI)NonAf Random Glucose Calcium Total Bilirubin AST ALT Alkaline Phosphatase Total Protein Albumin Syphilis Serology RPR Titer Reactive 1:1 H D Labs reviewed: serum glucose 134 (high), AST 39 (mildly elevated), albumin 3.2 (low), RPR reactive 1:1 Assessment: 12/24/19 14:00 Withdrawal sxs Noted with hyperglycemia, mild transaminitis, hypoalbuminemia and reactive RPR test Plan: Continue detox Encourage PO water intake Hyperglycemia: denies DM, repeat fasting glucose, send A1c Transaminitis: mild, most likely due to alcoholism, encourage abstinence from alcohol Hypoalbuminemia: encourage diet Abnormal syphilis test (reactive RPR): patient stated she was treated one year ago and was sexually inactive until few days ago, denies s/sx of syphilis. Follow up with PCP post discharge for monitoring.
[2019-12-24] MEDS: QUEtiapine FUMARATE 300 MG TABLET PO SCH (22:12)
[2019-12-24] MEDS: MELATONIN 5 MG TABLETS PO SCH (22:13)
[2019-12-24] MEDS: THIAMINE HCL 100 MG TABLET (FP) PO SCH (22:13)
[2019-12-25] MEDS: chlordiazePOXIDE HCL 25 MG CAPSULE PO SCH ×4 (06:24→22:14)
[2019-12-25] MEDS: GABAPENTIN 300 MG CAPSULE PO SCH ×3 (06:24→22:14)
[2019-12-25] MEDS: hydrOXYzine PAMOATE 25 MG CAPSULE (FP) PO SCH ×5 (06:25→22:14)
[2019-12-25] MEDS: BICTEGRAV/EMTRICIT/TENOFOV (BIKTARVY) 50-200-25 MG TABLET PO SCH (10:21)
[2019-12-25] MEDS: HYDROCHLOROTHIAZIDE 12.5 MG CAPSULE (FP) PO SCH (10:21)
[2019-12-25] MEDS: busPIRone HCL 10 MG TABLET (FP) PO SCH ×2 (10:22→22:14)
[2019-12-25] MEDS: NICOTINE 7 MG/24 HOURS TOPICAL PATCH TD SCH (10:22)
[2019-12-25] MEDS: amLODIPine BESYLATE 10 MG TABLET (FP) PO SCH (10:22)
[2019-12-25] MEDS: QUEtiapine FUMARATE 100 MG TABLET (FP) PO SCH (10:24)
[2019-12-25] MEDS: BUDESONIDE/FORMETEROL FUMARATE 160/4.5 mcg INHALER IH SCH ×2 (10:27→22:44)
[2019-12-25] MEDS: PRENATAL VITAMINS W/ FOLIC ACID TABLET (FP) PO SCH (10:27)
--- NOTE | 2019-12-25 14:03 | PN ---
S CIWA - CIWA Score Nausea/Vomitin Muscle Tremors: 2 Anxiety: 2 Agitation: 2 Paroxysmal Sweats: No Perspiration Orientation: 0-Oriented Tacttile Disturbances: 0-None Auditory Disturbances: 0-None Visual Disturbances: 0-None Headache: 1-Very Mild CIWA-Ar Total Score: 9 BHS Progress Note (SOAP) Subjective: alert,irritable,anxious,interrupted sleep,tremor Objective: 12/25/19 14:01 Vital Signs Temperature 97.9 F 12/25/19 12:46 Pulse Rate 77 12/25/19 12:46 Respiratory Rate 19 12/25/19 12:46 Blood Pressure 119/86 12/25/19 12:46 O2 Sat by Pulse Oximetry (%) 98 12/25/19 12:46 12/25/19 14:02 withdrawal symptom Assessment: 12/25/19 14:09 withdrawal symptom Plan: continue detox libriun regimen
[2019-12-25] MEDS: THIAMINE HCL 100 MG TABLET (FP) PO SCH (22:14)
[2019-12-25] MEDS: QUEtiapine FUMARATE 300 MG TABLET PO SCH (22:14)
[2019-12-25] MEDS: MELATONIN 5 MG TABLETS PO SCH (22:43)
[2019-12-26] MEDS ORDERED: chlordiazePOXIDE HCL 10 MG CAPSULE PO PRN
[2019-12-26] MEDS: hydrOXYzine PAMOATE 25 MG CAPSULE (FP) PO SCH (06:34)
[2019-12-26] MEDS: GABAPENTIN 300 MG CAPSULE PO SCH ×3 (06:34→23:00)
[2019-12-26] MEDS: chlordiazePOXIDE HCL 10 MG CAPSULE PO SCH ×4 (06:34→23:00)
[2019-12-26] MEDS ORDERED: hydrOXYzine PAMOATE 25 MG CAPSULE (FP) PO PRN (08:32)
[2019-12-26] MEDS ORDERED: PENICILLIN G BENZATHINE 2,400,000 UNIT/4 ML PFS IM ONE (09:29)
--- NOTE | 2019-12-26 10:37 | PN ---
S CIWA - CIWA Score Nausea/Vomitin-No Nausea/No Vomiting Muscle Tremors: 2 Anxiety: 1-Mildly Anxious Agitation: 2 Paroxysmal Sweats: 1-Minimal Palms Moist Orientation: 0-Oriented Tacttile Disturbances: 1-Very Mild Itch/Numbness Auditory Disturbances: 0-None Visual Disturbances: 0-None Headache: 0-None Present CIWA-Ar Total Score: 7 BHS Progress Note (SOAP) Subjective: sweats shakes agitation Objective: 12/26/19 10:38 Vital Signs Temperature 98.0 F 12/26/19 09:00 Pulse Rate 89 12/26/19 09:00 Respiratory Rate 19 12/26/19 09:00 Blood Pressure 141/85 12/26/19 09:00 O2 Sat by Pulse Oximetry (%) 95 12/26/19 09:00 Laboratory Tests 12/23/19 12/23/19 12/24/19 14:02 14:58 07:25 WBC RBC Hgb Hct MCV MCH MCHC RDW Plt Count MPV Sodium Potassium Chloride Carbon Dioxide Anion Gap BUN Creatinine Est GFR (CKD-EPI)AfAm Est GFR (CKD-EPI)NonAf Random Glucose Hemoglobin A1c % Calcium Total Bilirubin AST ALT Alkaline Phosphatase Total Protein Albumin POC Urine HCG, Qual Negative Syphilis Serology Reactive A* RPR Titer COVID-19 (ADELE) Not detected 12/24/19 12/24/19 12/24/19 07:25 07:25 07:25 WBC 4.4 RBC 3.98 Hgb 12.9 Hct 38.5 MCV 96.7 H MCH 32.5 MCHC 33.6 RDW 15.5 Plt Count 244 D MPV 8.6 Sodium 139 Potassium 3.7 Chloride 104 Carbon Dioxide 26 Anion Gap 8 BUN 15.5 Creatinine 0.8 Est GFR (CKD-EPI)AfAm 101.04 Est GFR (CKD-EPI)NonAf 87.18 Random Glucose 134 H Hemoglobin A1c % Calcium 8.8 Total Bilirubin 0.8 AST 39 H ALT 38 Alkaline Phosphatase 82 Total Protein 7.2 Albumin 3.2 L POC Urine HCG, Qual Syphilis Serology RPR Titer Reactive 1:1 H D COVID-19 (ADELE) 12/25/19 08:15 WBC RBC Hgb Hct MCV MCH MCHC RDW Plt Count MPV Sodium Potassium Chloride Carbon Dioxide Anion Gap BUN Creatinine Est GFR (CKD-EPI)AfAm Est GFR (CKD-EPI)NonAf Random Glucose Hemoglobin A1c % 5.8 Calcium Total Bilirubin AST ALT Alkaline Phosphatase Total Protein Albumin POC Urine HCG, Qual Syphilis Serology RPR Titer COVID-19 (ADELE) labs noted aaox3 ambulating no acute distress Assessment: 12/26/19 10:38 withdrawals Plan: continue detox increase fluids
[2019-12-26] MEDS: BUDESONIDE/FORMETEROL FUMARATE 160/4.5 mcg INHALER IH SCH ×2 (10:51→23:00)
[2019-12-26] MEDS: QUEtiapine FUMARATE 100 MG TABLET (FP) PO SCH (10:51)
[2019-12-26] MEDS: NICOTINE 7 MG/24 HOURS TOPICAL PATCH TD SCH (10:51)
[2019-12-26] MEDS: amLODIPine BESYLATE 10 MG TABLET (FP) PO SCH (10:51)
[2019-12-26] MEDS: busPIRone HCL 10 MG TABLET (FP) PO SCH ×2 (10:51→22:16)
[2019-12-26] MEDS: HYDROCHLOROTHIAZIDE 12.5 MG CAPSULE (FP) PO SCH (10:51)
[2019-12-26] MEDS: PRENATAL VITAMINS W/ FOLIC ACID TABLET (FP) PO SCH (10:51)
[2019-12-26] MEDS: BICTEGRAV/EMTRICIT/TENOFOV (BIKTARVY) 50-200-25 MG TABLET PO SCH (10:52)
[2019-12-26] MEDS: THIAMINE HCL 100 MG TABLET (FP) PO SCH (22:15)
[2019-12-26] MEDS: QUEtiapine FUMARATE 300 MG TABLET PO SCH (22:16)
[2019-12-26] MEDS: MELATONIN 5 MG TABLETS PO SCH (23:00)
[2019-12-27] MEDS: GABAPENTIN 300 MG CAPSULE PO SCH ×3 (06:52→21:24)
[2019-12-27] MEDS: chlordiazePOXIDE HCL 10 MG CAPSULE PO SCH ×2 (06:52→17:36)
[2019-12-27] MEDS: amLODIPine BESYLATE 10 MG TABLET (FP) PO SCH (10:25)
[2019-12-27] MEDS: QUEtiapine FUMARATE 100 MG TABLET (FP) PO SCH (10:25)
[2019-12-27] MEDS: NICOTINE 7 MG/24 HOURS TOPICAL PATCH TD SCH (10:26)
[2019-12-27] MEDS: PRENATAL VITAMINS W/ FOLIC ACID TABLET (FP) PO SCH (10:26)
[2019-12-27] MEDS: busPIRone HCL 10 MG TABLET (FP) PO SCH ×2 (10:26→21:32)
[2019-12-27] MEDS: HYDROCHLOROTHIAZIDE 12.5 MG CAPSULE (FP) PO SCH (10:26)
[2019-12-27] MEDS: BUDESONIDE/FORMETEROL FUMARATE 160/4.5 mcg INHALER IH SCH ×2 (10:26→21:32)
[2019-12-27] MEDS: BICTEGRAV/EMTRICIT/TENOFOV (BIKTARVY) 50-200-25 MG TABLET PO SCH (10:26)
--- NOTE | 2019-12-27 10:58 | PN ---
[facility] Progress Note Note: [employer] Vehicle Operator spoke with [facility] pharmacist to confirm pt Biktarvy medication when it was last supervisor opening and picking. Pt last picked up on 12/18/2019. I asked the pharmacist that pt is asking for another Rx because she lost her bottle that she recently picked up. The pharmacist states that pt always loses her prescription and always says the same " I lost my bottle and need my refill." Pt pharmacist was very upset that she hears this from the patient continuously. Pharmacist will reach out to her PCP and explain the issue. But in the meantime a week worth of Biktarvy will be sent to pt pharmacy. The pharmacist agreed pt can get a week supply and pt has plenty of refills and pt will be able to supervisor opening and picking her Rx in a timely fashion come January. This was explained to pt and pt in agreement.
--- NOTE | 2019-12-27 10:59 | PN ---
S CIWA - CIWA Score Nausea/Vomitin-No Nausea/No Vomiting Muscle Tremors: 1-None Visible, but [place] Anxiety: 1-Mildly Anxious Agitation: 1-Slight > Activity Paroxysmal Sweats: No Perspiration Orientation: 0-Oriented Tacttile Disturbances: 0-None Auditory Disturbances: 0-None Visual Disturbances: 0-None Headache: 0-None Present CIWA-Ar Total Score: 3 BHS Progress Note (SOAP) Subjective: little anxiety Objective: 12/27/19 10:58 Vital Signs Temperature 97.8 F 12/27/19 08:38 Pulse Rate 92 H 12/27/19 08:38 Respiratory Rate 18 12/27/19 08:38 Blood Pressure 139/93 12/27/19 08:38 O2 Sat by Pulse Oximetry (%) 96 12/27/19 05:49 aaox3 ambulating no acute distress Assessment: 12/27/19 10:59 mild withdrawals Plan: continue detox d/c in am
[2019-12-27] MEDS: QUEtiapine FUMARATE 300 MG TABLET PO SCH (21:24)
[2019-12-27] MEDS: THIAMINE HCL 100 MG TABLET (FP) PO SCH (21:24)
[2019-12-27] MEDS: MELATONIN 5 MG TABLETS PO SCH (21:32)
[2019-12-28] MEDS: chlordiazePOXIDE HCL 10 MG CAPSULE PO ONE ×2 (06:25→06:27)
[2019-12-28] MEDS: GABAPENTIN 300 MG CAPSULE PO SCH (06:27)
[2019-12-28 06:40] VITALS: BP 122/77; PULSE 105; TEMP 97.5
--- NOTE | 2019-12-28 09:01 | DS ---
[facility] Detox Discharge Summary Admission Date: 12/23/19 Discharge Date: 12/28/19 - History Present History: Alcohol Dependence, Cannabis Dependence, Cocaine Dependence - Physical Exam Results Vital Signs: Vital Signs Temperature 97.5 F L 12/28/19 06:06 Pulse Rate 105 H 12/28/19 06:06 Respiratory Rate 12/28/19 06:06 Blood Pressure 122/77 12/28/19 06:06 O2 Sat by Pulse Oximetry (%) 98 12/28/19 06:06 Pertinent Admission Physical Exam Findings: Vital Signs Temperature 97.5 F L 12/28/19 06:06 Pulse Rate 105 H 12/28/19 06:06 Respiratory Rate 12/28/19 06:06 Blood Pressure 122/77 12/28/19 06:06 O2 Sat by Pulse Oximetry (%) 98 12/28/19 06:06 Laboratory Tests 12/23/19 12/23/19 12/24/19 14:02 14:58 07:25 WBC RBC Hgb Hct MCV MCH MCHC RDW Plt Count MPV Sodium Potassium Chloride Carbon Dioxide Anion Gap BUN Creatinine Est GFR (CKD-EPI)AfAm Est GFR (CKD-EPI)NonAf Random Glucose Hemoglobin A1c % Calcium Total Bilirubin AST ALT Alkaline Phosphatase Total Protein Albumin POC Urine HCG, Qual Negative Syphilis Serology Reactive A* RPR Titer COVID-19 (ADELE) Not detected 12/24/19 12/24/19 12/24/19 07:25 07:25 07:25 WBC 4.4 RBC 3.98 Hgb 12.9 Hct 38.5 MCV 96.7 H MCH 32.5 MCHC 33.6 RDW 15.5 Plt Count 244 D MPV 8.6 Sodium 139 Potassium 3.7 Chloride 104 Carbon Dioxide 26 Anion Gap 8 BUN 15.5 Creatinine 0.8 Est GFR (CKD-EPI)AfAm 101.04 Est GFR (CKD-EPI)NonAf 87.18 Random Glucose 134 H Hemoglobin A1c % Calcium 8.8 Total Bilirubin 0.8 AST 39 H ALT 38 Alkaline Phosphatase 82 Total Protein 7.2 Albumin 3.2 L POC Urine HCG, Qual Syphilis Serology RPR Titer Reactive 1:1 H D COVID-19 (ADELE) 12/25/19 08:15 WBC RBC Hgb Hct MCV MCH MCHC RDW Plt Count MPV Sodium Potassium Chloride Carbon Dioxide Anion Gap BUN Creatinine Est GFR (CKD-EPI)AfAm Est GFR (CKD-EPI)NonAf Random Glucose Hemoglobin A1c % 5.8 Calcium Total Bilirubin AST ALT Alkaline Phosphatase Total Protein Albumin POC Urine HCG, Qual Syphilis Serology RPR Titer COVID-19 (ADELE) aaox3 ambulating no acute distress lungs CTA - Treatment Hospital Course: Detox Protocol Followed, Detoxed Safely, Responded well, Discharged Condition Good, Rehab Referral Accepted - Medication Discharge Medications: Ambulatory Orders Albuterol Sulfate Inhaler - [Ventolin HFA Inhaler -] 2 inh PO Q4H PRN 11/18/15 Quetiapine Fumarate [Seroquel -] 300 mg PO HS 11/18/15 Amlodipine Besylate 10 mg PO DAILY 11/15/18 Gabapentin 600 mg PO TID 11/15/18 Hydrochlorothiazide 12.5 mg PO DAILY 11/15/18 Quetiapine Fumarate [Seroquel] 100 mg PO DAILY 11/15/18 Thiamine HCl [Vitamin B-1] 100 mg PO DAILY 11/15/18 Bictegrav/Emtricit/Tenofov Ala [Biktarvy 50-200-25 mg Tablet] 1 each PO DAILY 12/23/19 Budesonide/Formeterol Fumarate [SYMBICORT 160/4.5mcg -] 1 inh PO BID 12/23/19 Calcium Carbonate/Vitamin D3 [Calcium 600 + Vit D 200 Tablet] 1 each PO BID 0 12/23/19 Folic Acid - 1 mg PO DAILY 12/23/19 Multivitamins [Tab-A-Vit -] 1 tab PO DAILY 12/23/19 - Diagnosis (1) Alcohol dependence with uncomplicated withdrawal Current Visit: Yes Status: Chronic (2) Asthma Current Visit: Yes Status: Chronic Qualifiers: Asthma severity: mild Asthma persistence: unspecified Asthma complication type: unspecified Qualified Code(s): J45.909 - Unspecified asthma, uncomplicated (3) Cocaine dependence Current Visit: Yes Status: Acute (4) History of head injury Current Visit: Yes Status: Acute (5) Hypercholesteremia Current Visit: Yes Status: Acute (6) Hypertension Current Visit: Yes Status: Acute (7) Nicotine dependence Current Visit: Yes Status: Chronic Qualifiers: Nicotine product type: cigarettes Substance use status: uncomplicated Qualified Code(s): F17.210 - Nicotine dependence, cigarettes, uncomplicated (8) Substance induced mood disorder Current Visit: Yes Status: Acute (9) Bipolar disorder Current Visit: Yes Status: Chronic (10) Seizure disorder Current Visit: No Status: Active (11) Substance induced mood disorder Current Visit: No Status: Acute (12) Weight loss Current Visit: No Status: Acute (13) Alcohol dependence Current Visit: No Status: Chronic (14) Asthma Current Visit: No Status: Chronic (15) Cannabis dependence Current Visit: No Status: Chronic (16) Cocaine dependence Current Visit: No Status: Chronic (17) Hearing loss, left Current Visit: No Status: Chronic (18) Human immunodeficiency virus infection Current Visit: No Status: Chronic (19) Vision loss, left eye Current Visit: No Status: Chronic (20) Alcohol related seizure Current Visit: No Status: Suspected (21) Schizoaffective disorder Current Visit: No Status: Suspected - AMA Did Patient Leave Against Medical Advice: No
[2019-12-28] MEDS: BUDESONIDE/FORMETEROL FUMARATE 160/4.5 mcg INHALER IH SCH (09:09)
[2019-12-28] MEDS: BICTEGRAV/EMTRICIT/TENOFOV (BIKTARVY) 50-200-25 MG TABLET PO SCH (09:09)
[2019-12-28] MEDS: PRENATAL VITAMINS W/ FOLIC ACID TABLET (FP) PO SCH (09:10)
[2019-12-28] MEDS: HYDROCHLOROTHIAZIDE 12.5 MG CAPSULE (FP) PO SCH (09:10)
[2019-12-28] MEDS: NICOTINE 7 MG/24 HOURS TOPICAL PATCH TD SCH (09:10)
[2019-12-28] MEDS: busPIRone HCL 10 MG TABLET (FP) PO SCH (09:10)
== END 2019-12-28 09:25 | disposition home or self-care (01) | DRG 774 ==
LOC: YASAS 11:28 → Y6N 14:28
PROVIDERS: ADMIT Allergy & Immunology; ATTEND Allergy & Immunology
PROC: HZ2ZZZZ Detoxification Services for Substance Abuse Treatment (ICD-10-PCS; principal; 2019-12-23)
DX: F10.230 Alcohol dependence with withdrawal, uncomplicated (principal); F14.20 Cocaine dependence, uncomplicated; F17.210 Nicotine dependence, cigarettes, uncomplicated; F31.9 Bipolar disorder, unspecified; F19.24 Other psychoactive substance dependence with psychoactive substance-induced mood disorder; F25.9 Schizoaffective disorder, unspecified; Z21 Asymptomatic human immunodeficiency virus [HIV] infection status; E88.09 Other disorders of plasma-protein metabolism, not elsewhere classified; I10 Essential (primary) hypertension; J45.909 Unspecified asthma, uncomplicated; E78.5 Hyperlipidemia, unspecified; G40.909 Epilepsy, unspecified, not intractable, without status epilepticus; D64.9 Anemia, unspecified; H54.62 Unqualified visual loss, left eye, normal vision right eye; H91.92 Unspecified hearing loss, left ear; R63.4 Abnormal weight loss; Z68.24 Body mass index [BMI] 24.0-24.9, adult; Z86.19 Personal history of other infectious and parasitic diseases; R73.9 Hyperglycemia, unspecified; R74.0 Nonspecific elevation of levels of transaminase and lactic acid dehydrogenase [LDH]; Z91.5 Personal history of self-harm; Z88.1 Allergy status to other antibiotic agents; Z91.018 Allergy to other foods
CPT/HCPCS: 36415; 80053; 81025; 83036; 85027; 86593; 86780; U0003

== ENCOUNTER 2020-03-12 17:39 | Inpatient (IN) | payer OTHER ==
--- OUTSIDE RECORDS SUMMARY | 2020-03-12 17:46 | XMS ---
:1970 Author Organization [facility] Support Name Relationship Address Phone UE, UNEMPLOYED Unavailable Unavailable Unavailable UE Unavailable Unavailable Unavailable MARILEE KATZ AUNT [address] [address] MARILEE KATZ Other [address] [place] [address] Re-disclosure Warning The records that you are about to access may contain information from federally- assisted alcohol or drug abuse programs. If such information is present, then the following federally mandated warning applies: This information has been disclosed to you from records protected by federal confidentiality rules (42 CFR part 2). The federal rules prohibit you from making any further disclosure of this information unless further disclosure is expressly permitted by the written consent of the person to whom it pertains or as otherwise permitted by 42 CFR part 2. A general authorization for the release of medical or other information is NOT sufficient for this purpose. The Federal rules restrict any use of the information to criminally investigate or prosecute any alcohol or drug abuse patient.The records that you are about to access may contain highly sensitive health information, the redisclosure of which is protected by Article 27-F of the [facility] Public Health law. If you continue you may haveaccess to information: Regarding HIV / AIDS; Provided by facilities licensed or operated by the [facility] Office of Mental Health; or Provided by the [facility] Office for People With Developmental Disabilities. If such information is present, then the following [facility] mandated warning applies: This information has been disclosed to you from confidential records which are protected by state law. State law prohibits you from making any further disclosure of this information without the specific written consent of the person to whom it pertains, or as otherwise permitted by law. Any unauthorized further disclosure in violation of state law may result in a fine or intermediate sentence or both. A general authorization for the release of medical or other information is NOT sufficient authorization for further disclosure. Insurance Providers Payer name Policy type Policy ID Covered Covered libertarian's Policy P sadiq / Coverage libertarian ID relationship to [employer] type [employer] [id number] SP [id number] [employer] [id number] SP [id number] FIRST Results ID Date Data Source [id number] 12/23/2019 02:58:00 PM EDT [facility] Name Value Range Interpretation Description Data Sup porting Code Source(s) Document(s ) SARS [facility] coronavirus 2 RNA This lab was ordered by [facility] and reported by [facility]. Procedure
[2020-03-12 18:16] VITALS: BMI 23.8
--- NOTE | 2020-03-12 18:19 | BHS.RME ---
Substance Use & Tx History - Substance Use History Cocaine-Crack Substance amount: " A LOT " Frequency of use: Daily Substance route: Smoking Alcohol Substance amount: " NOT A LOT " Frequency of use: More than 3 times per week Substance route: Oral Physical/Psych/Mental Status - Behavior General Behavior: Increased activity (restlessness, agitation) Eye Contact: Decreased - Cooperativeness Cooperativeness: Cooperative - Thinking Thought Processes: Logical - Physical Health Problems Is patient presently having any pain?: Yes (CHRONIC BACK PAIN ) Does patient presently have any injuries (include location): No Does patient currently have a fever: No CIWA Nausea/Vomitin-No Nausea/No Vomiting Muscle Tremors: None Anxiety: 1-Mildly Anxious Agitation: 1-Slight > Activity Paroxysmal Sweats: No Perspiration Orientation: 0-Oriented Tacttile Disturbances: 0-None Auditory Disturbances: 0-None Visual Disturbances: 0-None Headache: 0-None Present CIWA-Ar Total Score: 2
--- NOTE | 2020-03-12 21:26 | HP ---
CIWA Score Nausea/Vomitin-No Nausea/No Vomiting Muscle Tremors: None Anxiety: 1-Mildly Anxious Agitation: 1-Slight > Activity Paroxysmal Sweats: No Perspiration Orientation: 0-Oriented Tacttile Disturbances: 0-None Auditory Disturbances: 0-None Visual Disturbances: 0-None Headache: 0-None Present CIWA-Ar Total Score: 2 - Admission Criteria OASAS Guidelines: Admission for Medically Managed Detox: Requires at least one of the followin. CIWA greater than 12 2. Seizures within the past 24 hours 3. Delirium tremens within the past 24 hours 4. Hallucinations within the past 24 hours 5. Acute intervention needed for co occurring medical disorder 6. Acute intervention needed for co occurring psychiatric disorder 7. Severe withdrawal that cannot be handled at a lower level of care (continued vomiting, continued diarrhea, abnormal vital signs) requiring intravenous medication and/or fluids 8. 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 female requesting admission for cocaine and alcohol use . Denies w/d symptoms from alcohol, denies blackouts, tremors or seizures , latest use of alcohol was 2 days ago . PMHX : htn , asthma, HIV , bipolar d.o,SAD , PTSD , seizure d/o since age 13 not on meds lives in [place] Exam Limitations: No Limitations - Review of Systems Constitutional: Loss of Appetite EENT: reports: Hearing Loss, Other (glasses) Respiratory: reports: See HPI, Shortness of Breath Cardiac: reports: No Symptoms Reported GI: reports: Diarrhea : reports: No Symptoms Reported Musculoskeletal: reports: Back Pain (chronic w/ sciatica .) Integumentary: reports: No Symptoms Reported Neuro: reports: Seizure (known myoclonic seizures since age 13 , previously on Depakote stopped years ago per pt .) Endocrine: reports: No Symptoms Reported Hematology: reports: Anemia Psychiatric: reports: Orientated x3, Agitated, Anxious, Depressed Patient History - Patient Medical History Hx Anemia: Yes (NOT CURRENTLY ON IRON PILLS) Hx Asthma: Yes (on albuterol inhaler and symbicort) Hx Chronic Obstructive Pulmonary Disease (COPD): No Hx Cancer: No Hx Cardiac Disorders: No Hx Congestive Heart Failure: No Hx Hypertension: Yes (on med) Hx Hypercholesterolemia: No Hx Pacemaker: No HX Cerebrovascular Accident: No Hx Seizures: Yes Hx Dementia: No Hx Diabetes: No Hx Gastrointestinal Disorders: No Hx Liver Disease: No Hx Genitourinary Disorders: No Hx Sexually Transmitted Disorders: No Hx Renal Disease (ESRD): No Hx Thyroid Disease: No Hx Human Immunodeficiency Virus (HIV): Yes (started taking meds yesterday at hospital) Hx Hepatitis C: No Hx Depression: Yes Hx Suicide Attempt: Yes Hx Bipolar Disorder: Yes Hx Schizophrenia: No - Patient Surgical History Past Surgical History: No Hx Neurologic Surgery: No Hx Cataract Extraction: No Hx Cardiac Surgery: No Hx Lung Surgery: No Hx Breast Surgery: No Hx Breast Biopsy: No Hx Abdominal Surgery: No Hx Appendectomy: No Hx Cholecystectomy: No Hx Genitourinary Surgery: No Hx Section: No Hx Orthopedic Surgery: No Hx Hysterectomy: No Anesthesia Reaction: No - PPD History Date: 12/25/19 Results: NEGATIVE - Reproductive History Last Menstrual Period: 11/05/15 - Smoking Cessation Smoking history: Current every day smoker Have you smoked in the past 12 months: Yes Aproximately how many cigarettes per day: 20 Cigars Per Day: 0 Hx Chewing Tobacco Use: No Initiated information on smoking cessation: Yes 'Breaking Loose' booklet given: 03/12/20 Admission Physical Exam [facility] - Vital Signs Vital Signs: Vital Signs - 24 hr 03/12/20 18:11 Temperature 98.3 F Pulse Rate 55 L Respiratory 19 Rate Blood Pressure 171/83 H - Physical General Appearance: Yes: Anxious HEENTM: Yes: EOMI, Normocephalic, Hearing Decreased, Muffled/Hoarse Voice Respiratory: Yes: Decreased Breath Sounds, No Accessory Muscle Use Neck: Yes: No masses,lesions,Nodules, Trachea in good position Cardiology: Yes: Regular Rhythm, Regular Rate, S1, S2 Abdominal: Yes: Non Tender, Flat, Soft Back: Yes: Normal Inspection Musculoskeletal: Yes: Gait Steady Extremities: Yes: Normal Range of Motion, Non-Tender Neurological: Yes: Alert, Motor Strength 5/5 Integumentary: Yes: Warm - Diagnostic (1) Cocaine dependence Current Visit: Yes Status: Chronic (2) Alcohol dependence Current Visit: Yes Status: Chronic (3) Nicotine dependence Current Visit: Yes Status: Chronic Qualifiers: Nicotine product type: cigarettes Substance use status: uncomplicated Qualified Code(s): F17.210 - Nicotine dependence, cigarettes, uncomplicated Breathalyzer - Breathalyzer Breathalyzer: 0 Urine Drug Screen - Test Device Lot number: [id number] Expiration date: 09/12/21 - Control Is test valid?: Yes - Results Drug screen NEGATIVE: No Urine drug screen results: REBECA-Cocaine, BZO-Benzodiazepines Inpatient Rehab Admission - Rehab Decision to Admit Inpatient rehab admission?: Yes - Initial Determination Are CD services needed?: Yes Free of communicable disease: Yes Not in need of hospitalization: Yes - Rehab Admission Criteria Previous failed treatment: Yes Poor recovery environment: Yes Comorbidities: No Lacks judgement: Yes Patient is meeting Inpatient Rehab admission criteria:: Yes
[2020-03-12] MEDS ORDERED: ALBUTEROL SO4 HFA INHALER IH PRN (21:28)
[2020-03-12] MEDS ORDERED: LOPERAMIDE HCL 2 MG CAPSULE PO PRN (21:32)
[2020-03-12] MEDS ORDERED: P-EPHED 60MG/TRIPROLIDI 2.5MG TABLET PO PRN (21:32)
[2020-03-12] MEDS ORDERED: MAGNESIUM CITRATE 300 ML BOTTLE PO PRN (21:32)
[2020-03-12] MEDS ORDERED: MAGNESIUM HYDROX 2400MG/30ML ORAL SUSPENSION 30 ML CUP PO PRN (21:32)
[2020-03-12] MEDS ORDERED: NICOTINE POLACRILEX 2 MG GUM BC PRN (21:32)
[2020-03-12] MEDS ORDERED: guaiFENesin 200 MG/10 ML 10 ML UNIT-DOSE CUPS PO PRN (21:32)
[2020-03-12] MEDS ORDERED: IBUPROFEN 400 MG TABLET (FP) PO PRN (21:32)
[2020-03-12] MEDS ORDERED: MAG HYDROX/AL HYDROX/SIMETH 30 ML UNIT-DOSE CUP PO PRN (21:32)
[2020-03-12] MEDS ORDERED: hydrOXYzine PAMOATE 25 MG CAPSULE (FP) PO PRN (21:32)
[2020-03-12] MEDS ORDERED: ACETAMINOPHEN 325 MG TABLET (FP) PO PRN (21:32)
--- OUTSIDE RECORDS SUMMARY | 2020-03-12 21:59 | XMS ---
:1970 Author Organization [facility] Support Name Relationship Address Phone UE, UNEMPLOYED Unavailable Unavailable Unavailable UE Unavailable Unavailable Unavailable MARILEE KATZ AUNT [address] [phone] [place] [address] MARILEE KATZ Other [address] [place] [address] Re-disclosure Warning The records that you are [...] is protected by Article 27-F of the [place] Public [employer] law. If you continue you may haveaccess to information: Regarding HIV / AIDS; Provided by facilities licensed or operated by the [place] Office of Mental Health; or Provided by the [place] Office for People With Developmental Disabilities. If such information is present, then the following [place] mandated warning applies: This information has been [...] law may result in a fine or group home sentence or both. A general authorization for the release of medical or other information is NOT sufficient authorization for further disclosure. Insurance Providers Payer name Policy type Policy ID Covered Covered constitution party's Policy P sadiq / Coverage constitution party ID relationship to [employer] type [employer] [id number] SP [id number] [employer] [id number] SP [id number] FIRST Results ID Date Data Source [id number] 12/23/2019 02:58:00 PM EDT [facility] Name Value Range Interpretation Description Data Sup porting Code Source(s) Document(s ) SARS [facility] coronavirus 2 RNA This lab was ordered by [facility] Ac ct Bill Inter and reported by [facility]. Procedure
[2020-03-12] MEDS ORDERED: QUEtiapine FUMARATE 100 MG TABLET (FP) PO ONE (22:00)
[2020-03-12] MEDS: amLODIPine BESYLATE 10 MG TABLET (FP) PO SCH (22:41)
[2020-03-12] MEDS: GABAPENTIN 300 MG CAPSULE PO SCH (22:41)
[2020-03-12] MEDS: MELATONIN 5 MG TABLETS PO SCH (22:41)
[2020-03-12] MEDS: THIAMINE HCL 100 MG TABLET (FP) PO SCH (22:41)
[2020-03-12] MEDS: BUDESONIDE/FORMETEROL FUMARATE 160/4.5 mcg INHALER IH SCH (22:42)
[2020-03-13] MEDS ORDERED: PT OWN MED DRAWER 7, Y5N ONE ×3 (00:04→12:49)
[2020-03-13] MEDS: GABAPENTIN 300 MG CAPSULE PO SCH ×3 (06:44→21:05)
--- NOTE | 2020-03-13 08:48 | EKG ---
Test Reason : Blood Pressure : / mmHG Vent. Rate : 047 BPM Atrial Rate : 047 BPM P-R Int : 148 ms QRS Dur : 084 ms QT Int : 494 ms P-R-T Axes : 061 065 073 degrees QTc Int : 437 ms SINUS BRADYCARDIA OTHERWISE NORMAL ECG NO PREVIOUS ECGS AVAILABLE Confirmed by Max Arenas MD ([id number]) on 03/13/2020 8:47:02 AM Referred By: Jose Grande Confirmed By:Max Arenas MD
[2020-03-13] MEDS: amLODIPine BESYLATE 10 MG TABLET (FP) PO SCH (09:54)
[2020-03-13] MEDS: HYDROCHLOROTHIAZIDE 12.5 MG CAPSULE (FP) PO SCH (09:54)
[2020-03-13] MEDS: BUDESONIDE/FORMETEROL FUMARATE 160/4.5 mcg INHALER IH SCH ×2 (09:55→21:06)
[2020-03-13] MEDS: PRENATAL VITAMINS W/ FOLIC ACID TABLET (FP) PO SCH (09:55)
[2020-03-13] MEDS ORDERED: PATIENT'S OWN MEDICATION (NON-FORMULARY) (Bictegrav/Emtricit/Tenofov Ala 1 EACH) PO SCH (10:00)
[2020-03-13 10:51] LABS: HEMOGLOBIN 13.6 GM/dL (10.7-15.3); MCH 32.3 pg (25.7-33.7); MCHC 33.1 g/dl (32.0-36.0); MEAN CELL VOLUME 97.7 fl (80-96); RDW 14.4 % (11.6-15.6); WHITE BLOOD COUNT 4.3 K/mm3 (4.0-10.0)
[2020-03-13 10:52] LABS: MEAN PLT VOLUME 8.2 fl (7.5-11.1); PLATELET COUNT 159 K/MM3 (134-434)
[2020-03-13 11:40] LABS: ALBUMIN 3.1 g/dl (3.4-5.0); BILIRUBIN,TOTAL 1.2 mg/dL (0.2-1); BLOOD UREA NITROGEN 11.2 mg/dL (7-18); CALCIUM 9.3 mg/dL (8.5-10.1); CREATININE 0.9 mg/dL (0.55-1.3); POTASSIUM 3.8 mmol/L (3.5-5.1); TOT PROT 7.1 g/dl (6.4-8.2)
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
[2020-03-13] MEDS: BICTEGRAV/EMTRICIT/TENOFOV (BIKTARVY) 50-200-25 MG TABLET PO SCH (12:46)
--- NOTE | 2020-03-13 13:07 | PN ---
[facility] Progress Note Note: Laboratory Last Values WBC 4.3 K/mm3 (4.0-10.0) 03/12/20 07:00 RBC 4.20 M/mm3 (3.60-5.2) 03/12/20 07:00 Hgb 13.6 GM/dL (10.7-15.3) 03/12/20 07:00 Hct 41.0 % (32.4-45.2) 03/12/20 07:00 MCV 97.7 fl (80-96) H 03/12/20 07:00 MCH 32.3 pg (25.7-33.7) 03/12/20 07:00 MCHC 33.1 g/dl (32.0-36.0) 03/12/20 07:00 RDW 14.4 % (11.6-15.6) 03/12/20 07:00 Plt Count 159 K/MM3 (134-434) D 03/12/20 07:00 MPV 8.2 fl (7.5-11.1) 03/12/20 07:00 Sodium 134 mmol/L (136-145) L 03/12/20 07:00 Potassium 3.8 mmol/L (3.5-5.1) 03/12/20 07:00 Chloride 100 mmol/L (98-107) 03/12/20 07:00 Carbon Dioxide 28 mmol/L (21-32) 03/12/20 07:00 Anion Gap 5 MMOL/L (8-16) L 03/12/20 07:00 BUN 11.2 mg/dL (7-18) 03/12/20 07:00 Creatinine 0.9 mg/dL (0.55-1.3) 03/12/20 07:00 Est GFR (CKD-EPI)AfAm 87.02 03/12/20 07:00 Est GFR (CKD-EPI)NonAf 75.08 03/12/20 07:00 Random Glucose 146 mg/dL (74-106) H 03/12/20 07:00 Calcium 9.3 mg/dL (8.5-10.1) 03/12/20 07:00 Total Bilirubin 1.2 mg/dL (0.2-1) H 03/12/20 07:00 AST 113 U/L (15-37) H 03/12/20 07:00 ALT 72 U/L (13-61) H 03/12/20 07:00 Alkaline Phosphatase 109 U/L (45-117) 03/12/20 07:00 Total Protein 7.1 g/dl (6.4-8.2) 03/12/20 07:00 Albumin 3.1 g/dl (3.4-5.0) L 03/12/20 07:00 POC Urine HCG, Qual Negative 03/12/20 18:16 Syphilis Serology Reactive (NONREACTIVE) A* 03/12/20 07:00 RPR Titer Reactive 1:1 (NONREACTIVE) H 03/12/20 07:00 SARS-CoV-2 (PCR) Negative (Negative) 03/12/20 18:30 Labs reviewed; RPR 1:1, patient treated for syphilis several years ago, no further care needed. random glucose elevated, BGM x 1 tomorrow 6AM ordered, will review to determine if further care needed.
[2020-03-13] MEDS: THIAMINE HCL 100 MG TABLET (FP) PO SCH (21:05)
[2020-03-13] MEDS: MELATONIN 5 MG TABLETS PO SCH (21:05)
[2020-03-13] MEDS: QUEtiapine FUMARATE 300 MG TABLET PO SCH (21:06)
[2020-03-14] MEDS: GABAPENTIN 300 MG CAPSULE PO SCH ×3 (07:02→21:27)
[2020-03-14 09:14] LABS: SICKLE CELL SCREEN NEG (NEGATIVE)
[2020-03-14] MEDS: BICTEGRAV/EMTRICIT/TENOFOV (BIKTARVY) 50-200-25 MG TABLET PO SCH (09:31)
[2020-03-14] MEDS: PRENATAL VITAMINS W/ FOLIC ACID TABLET (FP) PO SCH (09:32)
[2020-03-14] MEDS: amLODIPine BESYLATE 10 MG TABLET (FP) PO SCH (09:32)
[2020-03-14] MEDS: QUEtiapine FUMARATE 100 MG TABLET (FP) PO SCH (09:32)
[2020-03-14] MEDS: HYDROCHLOROTHIAZIDE 12.5 MG CAPSULE (FP) PO SCH (09:32)
[2020-03-14] MEDS: BUDESONIDE/FORMETEROL FUMARATE 160/4.5 mcg INHALER IH SCH ×2 (09:33→21:27)
[2020-03-14 14:32] LABS: EPI CELLS 24 /uL (0-25.1); HYALINE CASTS 0 /uL (0-3.1); PH,URINE 6.5 (5.0-8.0); URINE APPEARANCE CLOUDY; URINE BACTERIA 429 /uL (0-1359); URINE BILIRUBIN NEGATIVE (NEGATIVE); URINE COLOR YELLOW; URINE GLUCOSE (UA) NEGATIVE (NEGATIVE); URINE KETONE NEGATIVE (NEGATIVE); URINE LEUK ESTERASE NEGATIVE (NEGATIVE); URINE NITRITE NEGATIVE (NEGATIVE); URINE PROTEIN NEGATIVE (NEGATIVE); URINE RBC 3 /uL (0-23.9); URINE UROBILINOGEN 0.2 mg/dL (0.2-1.0); URINE WBC 16 /uL (0-25.8)
[2020-03-14] MEDS: THIAMINE HCL 100 MG TABLET (FP) PO SCH (21:27)
[2020-03-14] MEDS: QUEtiapine FUMARATE 300 MG TABLET PO SCH (21:27)
[2020-03-14] MEDS: MELATONIN 5 MG TABLETS PO SCH (21:28)
[2020-03-15] MEDS: GABAPENTIN 300 MG CAPSULE PO SCH ×3 (07:02→22:11)
[2020-03-15] MEDS ORDERED: PT OWN MED DRAWER 7, Y5N ONE ×2 (08:08→19:12)
[2020-03-15] MEDS: BICTEGRAV/EMTRICIT/TENOFOV (BIKTARVY) 50-200-25 MG TABLET PO SCH (09:39)
[2020-03-15] MEDS: HYDROCHLOROTHIAZIDE 12.5 MG CAPSULE (FP) PO SCH (09:39)
[2020-03-15] MEDS: amLODIPine BESYLATE 10 MG TABLET (FP) PO SCH (09:39)
[2020-03-15] MEDS: QUEtiapine FUMARATE 100 MG TABLET (FP) PO SCH (09:40)
[2020-03-15] MEDS: PRENATAL VITAMINS W/ FOLIC ACID TABLET (FP) PO SCH (09:40)
[2020-03-15] MEDS: BUDESONIDE/FORMETEROL FUMARATE 160/4.5 mcg INHALER IH SCH ×2 (09:40→22:11)
[2020-03-15] MEDS: QUEtiapine FUMARATE 300 MG TABLET PO SCH (22:11)
[2020-03-15] MEDS: THIAMINE HCL 100 MG TABLET (FP) PO SCH (22:11)
[2020-03-15] MEDS: MELATONIN 5 MG TABLETS PO SCH (22:11)
[2020-03-16] MEDS: GABAPENTIN 300 MG CAPSULE PO SCH ×3 (06:36→21:42)
[2020-03-16] MEDS ORDERED: PT OWN MED DRAWER 7, Y5N ONE (08:53)
[2020-03-16] MEDS: QUEtiapine FUMARATE 100 MG TABLET (FP) PO SCH (10:11)
[2020-03-16] MEDS: PRENATAL VITAMINS W/ FOLIC ACID TABLET (FP) PO SCH (10:11)
[2020-03-16] MEDS: BICTEGRAV/EMTRICIT/TENOFOV (BIKTARVY) 50-200-25 MG TABLET PO SCH (10:12)
[2020-03-16] MEDS: BUDESONIDE/FORMETEROL FUMARATE 160/4.5 mcg INHALER IH SCH ×2 (10:12→21:43)
[2020-03-16] MEDS: HYDROCHLOROTHIAZIDE 12.5 MG CAPSULE (FP) PO SCH (10:12)
[2020-03-16] MEDS: amLODIPine BESYLATE 10 MG TABLET (FP) PO SCH (10:12)
[2020-03-16] MEDS: QUEtiapine FUMARATE 300 MG TABLET PO SCH (21:42)
[2020-03-16] MEDS: MELATONIN 5 MG TABLETS PO SCH (21:43)
[2020-03-16] MEDS: THIAMINE HCL 100 MG TABLET (FP) PO SCH (21:43)
[2020-03-17] MEDS: GABAPENTIN 300 MG CAPSULE PO SCH ×3 (06:28→21:40)
[2020-03-17] MEDS ORDERED: PT OWN MED DRAWER 7, Y5N ONE (08:26)
[2020-03-17] MEDS: PRENATAL VITAMINS W/ FOLIC ACID TABLET (FP) PO SCH (09:18)
[2020-03-17] MEDS: amLODIPine BESYLATE 10 MG TABLET (FP) PO SCH (09:18)
[2020-03-17] MEDS: QUEtiapine FUMARATE 100 MG TABLET (FP) PO SCH (09:18)
[2020-03-17] MEDS: HYDROCHLOROTHIAZIDE 12.5 MG CAPSULE (FP) PO SCH (09:19)
[2020-03-17] MEDS: BICTEGRAV/EMTRICIT/TENOFOV (BIKTARVY) 50-200-25 MG TABLET PO SCH (09:19)
[2020-03-17] MEDS: BUDESONIDE/FORMETEROL FUMARATE 160/4.5 mcg INHALER IH SCH ×2 (09:20→21:41)
[2020-03-17] MEDS: QUEtiapine FUMARATE 300 MG TABLET PO SCH (21:40)
[2020-03-17] MEDS: THIAMINE HCL 100 MG TABLET (FP) PO SCH (21:41)
[2020-03-17] MEDS: MELATONIN 5 MG TABLETS PO SCH (21:41)
[2020-03-18] MEDS: GABAPENTIN 300 MG CAPSULE PO SCH ×2 (06:57→13:02)
[2020-03-18] MEDS ORDERED: PT OWN MED DRAWER 7, Y5N ONE (08:10)
[2020-03-18] MEDS: PRENATAL VITAMINS W/ FOLIC ACID TABLET (FP) PO SCH (09:57)
[2020-03-18] MEDS: QUEtiapine FUMARATE 100 MG TABLET (FP) PO SCH (09:57)
[2020-03-18] MEDS: BICTEGRAV/EMTRICIT/TENOFOV (BIKTARVY) 50-200-25 MG TABLET PO SCH (09:57)
[2020-03-18] MEDS: HYDROCHLOROTHIAZIDE 12.5 MG CAPSULE (FP) PO SCH (09:57)
[2020-03-18] MEDS: amLODIPine BESYLATE 10 MG TABLET (FP) PO SCH (09:57)
[2020-03-18] MEDS: BUDESONIDE/FORMETEROL FUMARATE 160/4.5 mcg INHALER IH SCH ×2 (09:58→21:19)
[2020-03-18] MEDS: THIAMINE HCL 100 MG TABLET (FP) PO SCH (21:19)
[2020-03-18] MEDS: QUEtiapine FUMARATE 300 MG TABLET PO SCH (21:19)
[2020-03-18] MEDS: MELATONIN 5 MG TABLETS PO SCH (21:19)
[2020-03-19] MEDS ORDERED: PT OWN MED DRAWER 7, Y5N ONE (08:07)
[2020-03-19] MEDS: QUEtiapine FUMARATE 100 MG TABLET (FP) PO SCH (09:20)
[2020-03-19] MEDS: amLODIPine BESYLATE 10 MG TABLET (FP) PO SCH (09:20)
[2020-03-19] MEDS: HYDROCHLOROTHIAZIDE 12.5 MG CAPSULE (FP) PO SCH (09:20)
[2020-03-19] MEDS: BICTEGRAV/EMTRICIT/TENOFOV (BIKTARVY) 50-200-25 MG TABLET PO SCH (09:20)
[2020-03-19] MEDS: BUDESONIDE/FORMETEROL FUMARATE 160/4.5 mcg INHALER IH SCH ×2 (09:21→21:50)
[2020-03-19] MEDS: PRENATAL VITAMINS W/ FOLIC ACID TABLET (FP) PO SCH (09:21)
[2020-03-19] MEDS ORDERED: FLU VACCINE (FLULAVAL) PF 60 MCG/0.5 ML SYRINGE 2020-2021 IM ONE (16:23)
--- NOTE | 2020-03-19 16:25 | PN ---
[facility] Progress Note Note: pt requesting Flu shot Vital Signs - 24 hr 03/18/20 03/19/20 03/19/20 20:35 06:45 08:44 Temperature 97.3 F L Pulse Rate 70 94 H Respiratory 16 Rate Blood Pressure 117/74 124/79 O2 Sat by Pulse 100 99 Oximetry (%) 03/19/20 14:30 Temperature Pulse Rate Respiratory Rate Blood Pressure O2 Sat by Pulse 97 Oximetry (%) Flu Vacc 60 mcg IM as directed
[2020-03-19] MEDS: GABAPENTIN 300 MG CAPSULE PO PRN (21:05)
[2020-03-19] MEDS: MELATONIN 5 MG TABLETS PO SCH (21:06)
[2020-03-19] MEDS: QUEtiapine FUMARATE 300 MG TABLET PO SCH (21:07)
[2020-03-19] MEDS: THIAMINE HCL 100 MG TABLET (FP) PO SCH (21:56)
[2020-03-20] MEDS: QUEtiapine FUMARATE 100 MG TABLET (FP) PO SCH (09:32)
[2020-03-20] MEDS: PRENATAL VITAMINS W/ FOLIC ACID TABLET (FP) PO SCH (09:32)
[2020-03-20] MEDS: BICTEGRAV/EMTRICIT/TENOFOV (BIKTARVY) 50-200-25 MG TABLET PO SCH (09:32)
[2020-03-20] MEDS: amLODIPine BESYLATE 10 MG TABLET (FP) PO SCH (09:33)
[2020-03-20] MEDS: HYDROCHLOROTHIAZIDE 12.5 MG CAPSULE (FP) PO SCH (09:33)
[2020-03-20] MEDS: BUDESONIDE/FORMETEROL FUMARATE 160/4.5 mcg INHALER IH SCH ×2 (09:33→21:37)
[2020-03-20] MEDS: GABAPENTIN 300 MG CAPSULE PO PRN (09:34)
[2020-03-20] MEDS ORDERED: PT OWN MED DRAWER 7, Y5N ONE (15:40)
[2020-03-20] MEDS ORDERED: MASKS NR ONE (18:05)
[2020-03-20] MEDS: QUEtiapine FUMARATE 300 MG TABLET PO SCH (21:36)
[2020-03-20] MEDS: MELATONIN 5 MG TABLETS PO SCH (21:37)
[2020-03-20] MEDS: THIAMINE HCL 100 MG TABLET (FP) PO SCH (21:37)
[2020-03-21] MEDS: GABAPENTIN 300 MG CAPSULE PO PRN (07:35)
[2020-03-21] MEDS: HYDROCHLOROTHIAZIDE 12.5 MG CAPSULE (FP) PO SCH (09:33)
[2020-03-21] MEDS: BICTEGRAV/EMTRICIT/TENOFOV (BIKTARVY) 50-200-25 MG TABLET PO SCH (09:33)
[2020-03-21] MEDS: amLODIPine BESYLATE 10 MG TABLET (FP) PO SCH (09:34)
[2020-03-21] MEDS: PRENATAL VITAMINS W/ FOLIC ACID TABLET (FP) PO SCH (09:34)
[2020-03-21] MEDS: QUEtiapine FUMARATE 100 MG TABLET (FP) PO SCH (09:34)
[2020-03-21] MEDS: BUDESONIDE/FORMETEROL FUMARATE 160/4.5 mcg INHALER IH SCH ×2 (09:35→21:41)
[2020-03-21] MEDS: QUEtiapine FUMARATE 300 MG TABLET PO SCH (21:40)
[2020-03-21] MEDS: THIAMINE HCL 100 MG TABLET (FP) PO SCH (21:40)
[2020-03-21] MEDS: MELATONIN 5 MG TABLETS PO SCH (21:41)
[2020-03-22] MEDS ORDERED: PT OWN MED DRAWER 7, Y5N ONE ×2 (08:56→13:32)
[2020-03-22] MEDS: PRENATAL VITAMINS W/ FOLIC ACID TABLET (FP) PO SCH (09:54)
[2020-03-22] MEDS: BUDESONIDE/FORMETEROL FUMARATE 160/4.5 mcg INHALER IH SCH ×2 (09:54→22:01)
[2020-03-22] MEDS: GABAPENTIN 300 MG CAPSULE PO PRN (09:55)
[2020-03-22] MEDS: BICTEGRAV/EMTRICIT/TENOFOV (BIKTARVY) 50-200-25 MG TABLET PO SCH (09:56)
[2020-03-22] MEDS: QUEtiapine FUMARATE 100 MG TABLET (FP) PO SCH (09:56)
[2020-03-22] MEDS: HYDROCHLOROTHIAZIDE 12.5 MG CAPSULE (FP) PO SCH (11:00)
[2020-03-22] MEDS: amLODIPine BESYLATE 10 MG TABLET (FP) PO SCH (11:00)
[2020-03-22] MEDS: MELATONIN 5 MG TABLETS PO SCH (22:01)
[2020-03-22] MEDS: QUEtiapine FUMARATE 300 MG TABLET PO SCH (22:01)
[2020-03-22] MEDS: THIAMINE HCL 100 MG TABLET (FP) PO SCH (22:01)
[2020-03-23] MEDS ORDERED: PT OWN MED DRAWER 7, Y5N ONE (08:00)
[2020-03-23] MEDS: BICTEGRAV/EMTRICIT/TENOFOV (BIKTARVY) 50-200-25 MG TABLET PO SCH (09:38)
[2020-03-23] MEDS: amLODIPine BESYLATE 10 MG TABLET (FP) PO SCH (09:38)
[2020-03-23] MEDS: HYDROCHLOROTHIAZIDE 12.5 MG CAPSULE (FP) PO SCH (09:38)
[2020-03-23] MEDS: QUEtiapine FUMARATE 100 MG TABLET (FP) PO SCH (09:38)
[2020-03-23] MEDS: PRENATAL VITAMINS W/ FOLIC ACID TABLET (FP) PO SCH (09:38)
[2020-03-23] MEDS: BUDESONIDE/FORMETEROL FUMARATE 160/4.5 mcg INHALER IH SCH ×2 (09:39→21:38)
[2020-03-23] MEDS: THIAMINE HCL 100 MG TABLET (FP) PO SCH (21:37)
[2020-03-23] MEDS: QUEtiapine FUMARATE 300 MG TABLET PO SCH (21:37)
[2020-03-23] MEDS: MELATONIN 5 MG TABLETS PO SCH (21:38)
[2020-03-24] MEDS: GABAPENTIN 300 MG CAPSULE PO PRN (07:11)
[2020-03-24] MEDS ORDERED: PT OWN MED DRAWER 7, Y5N ONE (08:26)
[2020-03-24] MEDS: QUEtiapine FUMARATE 100 MG TABLET (FP) PO SCH (09:46)
[2020-03-24] MEDS: HYDROCHLOROTHIAZIDE 12.5 MG CAPSULE (FP) PO SCH (09:47)
[2020-03-24] MEDS: BUDESONIDE/FORMETEROL FUMARATE 160/4.5 mcg INHALER IH SCH ×2 (09:47→21:12)
[2020-03-24] MEDS: PRENATAL VITAMINS W/ FOLIC ACID TABLET (FP) PO SCH (09:47)
[2020-03-24] MEDS: BICTEGRAV/EMTRICIT/TENOFOV (BIKTARVY) 50-200-25 MG TABLET PO SCH (09:47)
[2020-03-24] MEDS: amLODIPine BESYLATE 10 MG TABLET (FP) PO SCH (09:47)
[2020-03-24] MEDS: THIAMINE HCL 100 MG TABLET (FP) PO SCH (21:11)
[2020-03-24] MEDS: QUEtiapine FUMARATE 300 MG TABLET PO SCH (21:11)
[2020-03-24] MEDS: MELATONIN 5 MG TABLETS PO SCH (21:12)
[2020-03-25 06:58] VITALS: TEMP 97.3
[2020-03-25] MEDS: GABAPENTIN 300 MG CAPSULE PO PRN (06:58)
[2020-03-25] MEDS ORDERED: PT OWN MED DRAWER 7, Y5N ONE (09:33)
[2020-03-25] MEDS: PRENATAL VITAMINS W/ FOLIC ACID TABLET (FP) PO SCH (09:46)
[2020-03-25] MEDS: QUEtiapine FUMARATE 100 MG TABLET (FP) PO SCH (09:47)
[2020-03-25] MEDS: amLODIPine BESYLATE 10 MG TABLET (FP) PO SCH (09:47)
[2020-03-25] MEDS: HYDROCHLOROTHIAZIDE 12.5 MG CAPSULE (FP) PO SCH (09:48)
[2020-03-25] MEDS: BICTEGRAV/EMTRICIT/TENOFOV (BIKTARVY) 50-200-25 MG TABLET PO SCH (09:49)
[2020-03-25] MEDS: BUDESONIDE/FORMETEROL FUMARATE 160/4.5 mcg INHALER IH SCH ×2 (09:50→21:53)
--- NOTE | 2020-03-25 09:55 | PN ---
[facility] Progress Note Note: Patient is scheduled for discharge tomorrow. Scripts for 30 days supply of Seroquel 100 mg/day & 300 mg/hs will be electronically transmitted to [facility], [address] [place] [id number]
[2020-03-25] MEDS: QUEtiapine FUMARATE 300 MG TABLET PO SCH (21:52)
[2020-03-25] MEDS: THIAMINE HCL 100 MG TABLET (FP) PO SCH (21:52)
[2020-03-25] MEDS: MELATONIN 5 MG TABLETS PO SCH (21:53)
[2020-03-26] MEDS: GABAPENTIN 300 MG CAPSULE PO PRN (06:54)
[2020-03-26] MEDS: HYDROCHLOROTHIAZIDE 12.5 MG CAPSULE (FP) PO SCH (09:02)
[2020-03-26] MEDS: QUEtiapine FUMARATE 100 MG TABLET (FP) PO SCH (09:02)
[2020-03-26] MEDS: amLODIPine BESYLATE 10 MG TABLET (FP) PO SCH (09:02)
[2020-03-26] MEDS: BICTEGRAV/EMTRICIT/TENOFOV (BIKTARVY) 50-200-25 MG TABLET PO SCH (09:02)
[2020-03-26] MEDS: PRENATAL VITAMINS W/ FOLIC ACID TABLET (FP) PO SCH (09:03)
[2020-03-26] MEDS: BUDESONIDE/FORMETEROL FUMARATE 160/4.5 mcg INHALER IH SCH (09:03)
--- NOTE | 2020-03-26 09:09 | DS ---
[facility] Rehab Discharge Summary - [facility] Rehab Discharge Summary Admission Date: 03/12/20 Discharge Date: 03/26/20 - History Present History: Alcohol dependence, Cocaine dependence Pertinent Past History: 50 y.o. female with history of cocaine and alcohol use. Denies w/d symptoms from alcohol, denies blackouts, tremors or seizures; latest use of alcohol was 2 days prior to admission. PMHX : htn , asthma, HIV, bipolar d.o,SAD, PTSD, seizure d/o since age 13 not on meds - Discharge Physical Exam Vital Signs: Vital Signs Temperature 97.3 F L 03/26/20 06:25 Pulse Rate 89 03/26/20 06:25 Respiratory Rate 18 03/26/20 06:25 Blood Pressure 136/90 03/26/20 06:25 O2 Sat by Pulse Oximetry (%) 96 03/26/20 06:25 Pertinent Admission Physical Exam Findings: Physical General Appearance: no apparent distress HEENTM: EOMI, Normocephalic, Respiratory: No Accessory Muscle Use Neck: supple Cardiology: S1, S2 Abdominal: +BS, Non Tender, Flat, Soft Musculoskeletal: Gait Steady, full weight bearing Neurological:CN 2-12 intact, - Treatment Discharge Condition: Discharge condition good (medically stable for discharge), Outpatient referral accepted (Patient will go to [facility] for aftercare and continue at [facility] for medical and psychiatric care.) Hospital Course: patient attended groups, had 1:1 with her counselor, was seen by the psychiatric service. She had no urgent or acute medical problems while in rehab. The results of her syphilis test was 1:1 and the patient stated she was treated for syphilis in the past. She also received a flu vaccine while in rehab. She was adherent to her medication regimen and treatment plan. - Medication Discharge Medications: Ambulatory Orders Gabapentin 600 mg PO TID 11/15/18 Thiamine HCl [Vitamin B-1] 100 mg PO DAILY 11/15/18 Calcium Carbonate/Vitamin D3 [Calcium 600 + Vit D 200 Tablet] 1 each PO BID 12/23/19 Folic Acid - 1 mg PO DAILY 12/23/19 Multivitamins [Tab-A-Vit -] 1 tab PO DAILY 12/23/19 Bictegrav/Emtricit/Tenofov Ala [Biktarvy 50-200-25 mg Tablet] 1 each PO DAILY #7 tablet 12/28/19 Albuterol Sulfate Inhaler - [Ventolin HFA Inhaler -] 2 inh PO Q4H PRN #1 inhaler 03/25/20 Amlodipine Besylate 10 mg PO DAILY #14 tablet 03/25/20 Bictegrav/Emtricit/Tenofov Ala [Biktarvy 50-200-25 mg Tablet] 1 each PO DAILY #30 tablet 03/25/20 Budesonide/Formeterol Fumarate [SYMBICORT 160/4.5mcg -] 1 inh PO BID #1 inhaler 03/25/20 Gabapentin [Neurontin -] 600 mg PO TID PRN #30 capsule 03/25/20 Hydrochlorothiazide 12.5 mg PO DAILY #14 tablet 03/25/20 Quetiapine Fumarate [Seroquel -] 100 mg PO DAILY #30 tablet 03/25/20 Quetiapine Fumarate [Seroquel -] 300 mg PO HS #30 tablet 03/25/20 - Medication-Assisted Treatment (MAT) Medication-Assisted Treatment (MAT): No - Discharge Instructions Diet, activity, other medical instructions: Diet: as tolerated Activity: as tolerated Other medical instructions: Please follow up with your aftercare referral. - Diagnosis (1) Alcohol dependence Current Visit: Yes Status: Chronic (2) Cocaine dependence Current Visit: Yes Status: Chronic - Follow-up Referral Minutes to complete discharge: 15 - AMA Did Patient Leave Against Medical Advice: No
[2020-03-26 10:30] VITALS: BP 131/81; PULSE 97
== END 2020-03-26 09:40 | disposition home or self-care (01) | DRG 772 ==
LOC: YASAS 17:39 → Y3E 21:54
PROVIDERS: ADMIT Allergy & Immunology; ATTEND Allergy & Immunology
PROC: HZ42ZZZ Group Counseling for Substance Abuse Treatment, Cognitive-Behavioral (ICD-10-PCS; principal; 2020-03-12)
DX: F10.20 Alcohol dependence, uncomplicated (principal); F14.20 Cocaine dependence, uncomplicated; F17.210 Nicotine dependence, cigarettes, uncomplicated; F25.9 Schizoaffective disorder, unspecified; F31.9 Bipolar disorder, unspecified; F19.24 Other psychoactive substance dependence with psychoactive substance-induced mood disorder; F19.282 Other psychoactive substance dependence with psychoactive substance-induced sleep disorder; F90.9 Attention-deficit hyperactivity disorder, unspecified type; Z21 Asymptomatic human immunodeficiency virus [HIV] infection status; G40.409 Other generalized epilepsy and epileptic syndromes, not intractable, without status epilepticus; I10 Essential (primary) hypertension; J45.909 Unspecified asthma, uncomplicated; M54.40 Lumbago with sciatica, unspecified side; Z91.410 Personal history of adult physical and sexual abuse; Z91.5 Personal history of self-harm; Z88.1 Allergy status to other antibiotic agents; Z91.018 Allergy to other foods
CPT/HCPCS: 36415; 80053; 81003; 81025; 82962; 85027; 85660; 86593; 86780; 93005; 93010; C9803; Q2036; U0003

== ENCOUNTER 2022-10-20 11:04 | Inpatient (IN) | payer OTHER ==
[2022-10-20 11:36] VITALS: BMI 23.3
[2022-10-20] MEDS ORDERED: POLYETHYLENE GLYCOL (HEALTHYLAX) 3350 17 GM PACKET PO PRN (11:48)
[2022-10-20] MEDS ORDERED: hydrOXYzine PAMOATE 25 MG CAPSULE (FP) PO PRN (11:48)
[2022-10-20] MEDS ORDERED: guaiFENesin 600 MG TABLET.ER (FP) PO PRN (11:48)
[2022-10-20] MEDS ORDERED: ACETAMINOPHEN 325 MG TABLET (FP) PO PRN (11:48)
[2022-10-20] MEDS ORDERED: NICOTINE 10 MG CARTRIDGE (INHALER) IH PRN (11:48)
[2022-10-20] MEDS ORDERED: AMMONIUM LACTATE 12% LOTION 225 GM BOTTLE TP PRN (11:48)
[2022-10-20] MEDS ORDERED: LOPERAMIDE HCL 2 MG CAPSULE PO PRN (11:48)
[2022-10-20] MEDS ORDERED: MAG HYDROX/AL HYDROX/SIMETH 30 ML UNIT-DOSE CUP PO PRN (11:48)
[2022-10-20] MEDS ORDERED: BENZONATATE 200 MG CAPSULE PO PRN (11:48)
[2022-10-20] MEDS ORDERED: IBUPROFEN 600 MG TABLET (FP) PO PRN (11:48)
[2022-10-20] MEDS ORDERED: NALOXONE HCL (KLOXXADO) 8 MG SPRAY NS PRN (11:48)
[2022-10-20] MEDS ORDERED: BENZOCAINE/MENTHOL (CHLORASEPTIC ) LOZENGE MM PRN (11:48)
[2022-10-20] MEDS ORDERED: MAGNESIUM HYDROX 2400MG/30ML ORAL SUSPENSION 30 ML CUP PO PRN (11:48)
[2022-10-20] MEDS ORDERED: NALOXONE HCL 0.4 MG/ML VIAL IM PRN (11:48)
[2022-10-20] MEDS ORDERED: NICOTINE POLACRILEX 2 MG GUM BUC PRN (11:48)
[2022-10-20] MEDS ORDERED: COLLOIDAL OATMEAL 1 BAR EACH TP PRN (11:48)
[2022-10-20] MEDS ORDERED: TUBERCULIN PPD 5 TU/0.1ML SYRINGE (IN PATIENT USE ONLY) ID ONE (11:48)
[2022-10-20] MEDS ORDERED: ALBUTEROL SO4 HFA INHALER IH PRN (12:02)
[2022-10-20] MEDS ORDERED: TUBERCULIN PPD 5 TU/0.1ML VIAL ID ONE (12:54)
[2022-10-20] MEDS: PRENATAL VITAMINS W/ FOLIC ACID TABLET (FP) PO SCH (12:56)
[2022-10-20 16:18] LABS: HEMATOCRIT 39.8 % (32.4-45.2); HEMOGLOBIN 13.4 GM/dL (10.7-15.3); MCH 32.3 pg (25.7-33.7); MCHC 33.6 g/dl (32.0-36.0); MEAN CELL VOLUME 96.2 fl (80-96); MEAN PLT VOLUME 8.1 fl (7.5-11.1); PLATELET COUNT 234 10^3/uL (134-434); RBC 4.14 M/mm3 (3.60-5.2); RDW 13.7 % (11.6-15.6)
[2022-10-20 16:20] LABS: POTASSIUM 4.1 mmol/L (3.5-5.1)
[2022-10-20 16:22] LABS: CALCIUM 9.4 mg/dL (8.5-10.1)
[2022-10-20 16:23] LABS: ALBUMIN 3.5 g/dl (3.4-5.0); BLOOD UREA NITROGEN 19.7 mg/dL (7-18)
[2022-10-20 16:28] LABS: BILIRUBIN,TOTAL 0.3 mg/dL (0.2-1); TOT PROT 7.6 g/dl (6.4-8.2)
[2022-10-20 17:42] LABS: SYPHILIS W/ RPR CONF REACTIVE (NONREACTIVE)
[2022-10-20 18:11] LABS: EPI CELLS 17 /uL (0-25.1); HYALINE CASTS 0 /uL (0-3.1); URINE APPEARANCE CLEAR; URINE BACTERIA 17 /uL (0-1359); URINE BILIRUBIN NEGATIVE (NEGATIVE); URINE COLOR YELLOW; URINE GLUCOSE (UA) NEGATIVE (NEGATIVE); URINE KETONE NEGATIVE (NEGATIVE); URINE LEUK ESTERASE TRACE (NEGATIVE); URINE NITRITE NEGATIVE (NEGATIVE); URINE PROTEIN TRACE (NEGATIVE); URINE RBC 35 /uL (0-23.9); URINE UROBILINOGEN 0.2 mg/dL (0.2-1.0); URINE WBC 14 /uL (0-25.8)
[2022-10-20] MEDS: BUDESONIDE/FORMETEROL FUMARATE 160/4.5 mcg INHALER IH SCH (21:13)
[2022-10-20] MEDS: THIAMINE HCL 100 MG TABLET (FP) PO SCH (21:13)
[2022-10-20] MEDS: QUEtiapine FUMARATE 200 MG TABLET PO SCH (21:13)
[2022-10-20] MEDS ORDERED: MELATONIN 5 MG TABLETS PO SCH (22:00)
[2022-10-21] MEDS: BICTEGRAV/EMTRICIT/TENOFOV (BIKTARVY) 50-200-25 MG TABLET PO SCH (07:02)
[2022-10-21] MEDS: QUEtiapine FUMARATE 100 MG TABLET (FP) PO SCH (10:05)
[2022-10-21] MEDS: amLODIPine BESYLATE 10 MG TABLET (FP) PO SCH (10:05)
[2022-10-21] MEDS: BUDESONIDE/FORMETEROL FUMARATE 160/4.5 mcg INHALER IH SCH ×2 (10:05→21:36)
[2022-10-21] MEDS: PRENATAL VITAMINS W/ FOLIC ACID TABLET (FP) PO SCH (10:05)
[2022-10-21] MEDS: THIAMINE HCL 100 MG TABLET (FP) PO SCH (21:35)
[2022-10-21] MEDS: QUEtiapine FUMARATE 200 MG TABLET PO SCH (21:35)
[2022-10-22] MEDS: IBUPROFEN 400 MG TABLET (FP) PO PRN (06:45)
[2022-10-22] MEDS: BICTEGRAV/EMTRICIT/TENOFOV (BIKTARVY) 50-200-25 MG TABLET PO SCH (07:12)
[2022-10-22] MEDS: QUEtiapine FUMARATE 100 MG TABLET (FP) PO SCH (10:35)
[2022-10-22] MEDS: PRENATAL VITAMINS W/ FOLIC ACID TABLET (FP) PO SCH (10:35)
[2022-10-22] MEDS: amLODIPine BESYLATE 10 MG TABLET (FP) PO SCH (10:35)
[2022-10-22] MEDS: BUDESONIDE/FORMETEROL FUMARATE 160/4.5 mcg INHALER IH SCH ×2 (10:41→21:26)
[2022-10-22] MEDS: HYDROCHLOROTHIAZIDE 12.5 MG CAPSULE (FP) PO SCH (11:03)
[2022-10-22] MEDS: THIAMINE HCL 100 MG TABLET (FP) PO SCH (21:26)
[2022-10-22] MEDS: QUEtiapine FUMARATE 200 MG TABLET PO SCH (21:26)
[2022-10-23] MEDS: BICTEGRAV/EMTRICIT/TENOFOV (BIKTARVY) 50-200-25 MG TABLET PO SCH (07:37)
[2022-10-23] MEDS: PRENATAL VITAMINS W/ FOLIC ACID TABLET (FP) PO SCH (09:47)
[2022-10-23] MEDS: amLODIPine BESYLATE 10 MG TABLET (FP) PO SCH (09:47)
[2022-10-23] MEDS: HYDROCHLOROTHIAZIDE 12.5 MG CAPSULE (FP) PO SCH (09:47)
[2022-10-23] MEDS: QUEtiapine FUMARATE 100 MG TABLET (FP) PO SCH (09:47)
[2022-10-23] MEDS: BUDESONIDE/FORMETEROL FUMARATE 160/4.5 mcg INHALER IH SCH ×2 (09:48→21:40)
[2022-10-23] MEDS: QUEtiapine FUMARATE 200 MG TABLET PO SCH (21:39)
[2022-10-23] MEDS: THIAMINE HCL 100 MG TABLET (FP) PO SCH (21:40)
[2022-10-23] MEDS: LACTULOSE 20 GM/30 ML UDC (FOR ORAL USE ONLY) PO SCH (21:40)
[2022-10-24] MEDS: METHOCARBAMOL 500 MG TABLET PO PRN (06:33)
[2022-10-24] MEDS: BICTEGRAV/EMTRICIT/TENOFOV (BIKTARVY) 50-200-25 MG TABLET PO SCH (07:19)
[2022-10-24] MEDS: HYDROCHLOROTHIAZIDE 12.5 MG CAPSULE (FP) PO SCH (10:00)
[2022-10-24] MEDS: LACTULOSE 20 GM/30 ML UDC (FOR ORAL USE ONLY) PO SCH ×2 (10:00→21:23)
[2022-10-24] MEDS: QUEtiapine FUMARATE 100 MG TABLET (FP) PO SCH (10:00)
[2022-10-24] MEDS: amLODIPine BESYLATE 10 MG TABLET (FP) PO SCH (10:01)
[2022-10-24] MEDS: PRENATAL VITAMINS W/ FOLIC ACID TABLET (FP) PO SCH (10:01)
[2022-10-24] MEDS: BUDESONIDE/FORMETEROL FUMARATE 160/4.5 mcg INHALER IH SCH ×2 (10:02→21:24)
[2022-10-24] MEDS: QUEtiapine FUMARATE 200 MG TABLET PO SCH (21:23)
[2022-10-24] MEDS: THIAMINE HCL 100 MG TABLET (FP) PO SCH (21:23)
[2022-10-25] MEDS: METHOCARBAMOL 500 MG TABLET PO PRN (06:14)
[2022-10-25] MEDS: BICTEGRAV/EMTRICIT/TENOFOV (BIKTARVY) 50-200-25 MG TABLET PO SCH (07:11)
[2022-10-25] MEDS: LACTULOSE 20 GM/30 ML UDC (FOR ORAL USE ONLY) PO SCH ×2 (09:56→21:15)
[2022-10-25] MEDS: QUEtiapine FUMARATE 100 MG TABLET (FP) PO SCH (09:56)
[2022-10-25] MEDS: amLODIPine BESYLATE 10 MG TABLET (FP) PO SCH (09:56)
[2022-10-25] MEDS: PRENATAL VITAMINS W/ FOLIC ACID TABLET (FP) PO SCH (09:56)
[2022-10-25] MEDS: HYDROCHLOROTHIAZIDE 12.5 MG CAPSULE (FP) PO SCH (09:56)
[2022-10-25] MEDS: BUDESONIDE/FORMETEROL FUMARATE 160/4.5 mcg INHALER IH SCH ×2 (09:58→21:16)
[2022-10-25] MEDS: QUEtiapine FUMARATE 200 MG TABLET PO SCH (21:15)
[2022-10-25] MEDS: THIAMINE HCL 100 MG TABLET (FP) PO SCH (21:15)
[2022-10-26] MEDS: METHOCARBAMOL 500 MG TABLET PO PRN (07:31)
[2022-10-26] MEDS: BICTEGRAV/EMTRICIT/TENOFOV (BIKTARVY) 50-200-25 MG TABLET PO SCH (07:33)
[2022-10-26] MEDS: LACTULOSE 20 GM/30 ML UDC (FOR ORAL USE ONLY) PO SCH ×2 (10:17→21:15)
[2022-10-26] MEDS: HYDROCHLOROTHIAZIDE 12.5 MG CAPSULE (FP) PO SCH (10:17)
[2022-10-26] MEDS: QUEtiapine FUMARATE 100 MG TABLET (FP) PO SCH (10:17)
[2022-10-26] MEDS: PRENATAL VITAMINS W/ FOLIC ACID TABLET (FP) PO SCH (10:17)
[2022-10-26] MEDS: amLODIPine BESYLATE 10 MG TABLET (FP) PO SCH (10:17)
[2022-10-26] MEDS: BUDESONIDE/FORMETEROL FUMARATE 160/4.5 mcg INHALER IH SCH ×2 (10:18→21:17)
[2022-10-26] MEDS: QUEtiapine FUMARATE 200 MG TABLET PO SCH (21:15)
[2022-10-26] MEDS: THIAMINE HCL 100 MG TABLET (FP) PO SCH (21:15)
[2022-10-27] MEDS: METHOCARBAMOL 500 MG TABLET PO PRN ×2 (06:48→21:38)
[2022-10-27] MEDS: BICTEGRAV/EMTRICIT/TENOFOV (BIKTARVY) 50-200-25 MG TABLET PO SCH (07:30)
[2022-10-27] MEDS: PRENATAL VITAMINS W/ FOLIC ACID TABLET (FP) PO SCH (09:43)
[2022-10-27] MEDS: LACTULOSE 20 GM/30 ML UDC (FOR ORAL USE ONLY) PO SCH ×2 (09:43→21:37)
[2022-10-27] MEDS: QUEtiapine FUMARATE 100 MG TABLET (FP) PO SCH (09:44)
[2022-10-27] MEDS: amLODIPine BESYLATE 10 MG TABLET (FP) PO SCH (09:44)
[2022-10-27] MEDS: HYDROCHLOROTHIAZIDE 12.5 MG CAPSULE (FP) PO SCH (09:44)
[2022-10-27] MEDS: BUDESONIDE/FORMETEROL FUMARATE 160/4.5 mcg INHALER IH SCH ×2 (09:45→21:46)
[2022-10-27] MEDS: SIMETHICONE 80 MG TAB.CHEW (FP) PO PRN (14:35)
[2022-10-27] MEDS: QUEtiapine FUMARATE 200 MG TABLET PO SCH (21:38)
[2022-10-27] MEDS: IBUPROFEN 400 MG TABLET (FP) PO PRN (21:38)
[2022-10-27] MEDS: THIAMINE HCL 100 MG TABLET (FP) PO SCH (21:38)
[2022-10-27 23:26] VITALS: RESP 18
[2022-10-28] MEDS: METHOCARBAMOL 500 MG TABLET PO PRN (05:57)
[2022-10-28] MEDS: BICTEGRAV/EMTRICIT/TENOFOV (BIKTARVY) 50-200-25 MG TABLET PO SCH (07:10)
[2022-10-28] MEDS: SIMETHICONE 80 MG TAB.CHEW (FP) PO PRN (07:19)
[2022-10-28] MEDS: amLODIPine BESYLATE 10 MG TABLET (FP) PO SCH (09:37)
[2022-10-28] MEDS: PRENATAL VITAMINS W/ FOLIC ACID TABLET (FP) PO SCH (09:37)
[2022-10-28] MEDS: LACTULOSE 20 GM/30 ML UDC (FOR ORAL USE ONLY) PO SCH ×2 (09:37→21:43)
[2022-10-28] MEDS: HYDROCHLOROTHIAZIDE 12.5 MG CAPSULE (FP) PO SCH (09:37)
[2022-10-28] MEDS: BUDESONIDE/FORMETEROL FUMARATE 160/4.5 mcg INHALER IH SCH ×2 (09:37→21:44)
[2022-10-28] MEDS: QUEtiapine FUMARATE 100 MG TABLET (FP) PO SCH (09:37)
[2022-10-28] MEDS: FOLIC ACID 1 MG TABLET (FP) PO SCH (15:31)
[2022-10-28] MEDS: CYANOCOBALAMIN (VITAMIN B-12) 100 MCG TABLET PO SCH (15:32)
[2022-10-28] MEDS: QUEtiapine FUMARATE 200 MG TABLET PO SCH (21:43)
[2022-10-28] MEDS: THIAMINE HCL 100 MG TABLET (FP) PO SCH (21:43)
[2022-10-29] MEDS: SIMETHICONE 80 MG TAB.CHEW (FP) PO PRN ×3 (06:38→22:36)
[2022-10-29] MEDS: HYDROCHLOROTHIAZIDE 12.5 MG CAPSULE (FP) PO SCH (10:02)
[2022-10-29] MEDS: LACTULOSE 20 GM/30 ML UDC (FOR ORAL USE ONLY) PO SCH ×2 (10:02→21:08)
[2022-10-29] MEDS: BICTEGRAV/EMTRICIT/TENOFOV (BIKTARVY) 50-200-25 MG TABLET PO SCH (10:02)
[2022-10-29] MEDS: amLODIPine BESYLATE 10 MG TABLET (FP) PO SCH (10:03)
[2022-10-29] MEDS: FOLIC ACID 1 MG TABLET (FP) PO SCH (10:03)
[2022-10-29] MEDS: QUEtiapine FUMARATE 100 MG TABLET (FP) PO SCH (10:03)
[2022-10-29] MEDS: PRENATAL VITAMINS W/ FOLIC ACID TABLET (FP) PO SCH (10:03)
[2022-10-29] MEDS: CYANOCOBALAMIN (VITAMIN B-12) 100 MCG TABLET PO SCH (10:03)
[2022-10-29] MEDS: BUDESONIDE/FORMETEROL FUMARATE 160/4.5 mcg INHALER IH SCH ×2 (10:03→21:09)
[2022-10-29] MEDS: THIAMINE HCL 100 MG TABLET (FP) PO SCH (21:08)
[2022-10-29] MEDS: QUEtiapine FUMARATE 200 MG TABLET PO SCH (21:08)
[2022-10-30] MEDS: METHOCARBAMOL 500 MG TABLET PO PRN (06:18)
[2022-10-30] MEDS: SIMETHICONE 80 MG TAB.CHEW (FP) PO PRN (06:18)
[2022-10-30] MEDS: BICTEGRAV/EMTRICIT/TENOFOV (BIKTARVY) 50-200-25 MG TABLET PO SCH (07:02)
[2022-10-30 08:04] VITALS: BP 128/72; PULSE 86; TEMP 96.5
[2022-10-30] MEDS: QUEtiapine FUMARATE 100 MG TABLET (FP) PO SCH (09:42)
[2022-10-30] MEDS: PRENATAL VITAMINS W/ FOLIC ACID TABLET (FP) PO SCH (09:42)
[2022-10-30] MEDS: LACTULOSE 20 GM/30 ML UDC (FOR ORAL USE ONLY) PO SCH (09:45)
[2022-10-30] MEDS: FOLIC ACID 1 MG TABLET (FP) PO SCH (09:45)
[2022-10-30] MEDS: HYDROCHLOROTHIAZIDE 12.5 MG CAPSULE (FP) PO SCH (09:45)
[2022-10-30] MEDS: amLODIPine BESYLATE 10 MG TABLET (FP) PO SCH (09:45)
[2022-10-30] MEDS: BUDESONIDE/FORMETEROL FUMARATE 160/4.5 mcg INHALER IH SCH (09:46)
[2022-10-30] MEDS: CYANOCOBALAMIN (VITAMIN B-12) 100 MCG TABLET PO SCH (09:47)
== END 2022-10-30 10:10 | disposition home or self-care (01) | DRG 772 ==
LOC: YASAS 11:04 → Y5N 12:23
PROVIDERS: ADMIT Allergy & Immunology; ATTEND Psychiatry & Neurology Pain Medicine
PROC: HZ42ZZZ Group Counseling for Substance Abuse Treatment, Cognitive-Behavioral (ICD-10-PCS; principal; 2022-10-20)
DX: F10.20 Alcohol dependence, uncomplicated (principal); F14.20 Cocaine dependence, uncomplicated; F12.20 Cannabis dependence, uncomplicated; F17.210 Nicotine dependence, cigarettes, uncomplicated; F19.282 Other psychoactive substance dependence with psychoactive substance-induced sleep disorder; F25.9 Schizoaffective disorder, unspecified; B20 Human immunodeficiency virus [HIV] disease; I10 Essential (primary) hypertension; J45.909 Unspecified asthma, uncomplicated; L30.9 Dermatitis, unspecified; L85.3 Xerosis cutis; M54.30 Sciatica, unspecified side; H91.92 Unspecified hearing loss, left ear; R79.89 Other specified abnormal findings of blood chemistry; Z79.899 Other long term (current) drug therapy; Z88.1 Allergy status to other antibiotic agents; Z86.59 Personal history of other mental and behavioral disorders
CPT/HCPCS: 36415; 80053; 81003; 81025; 82140; 85027; 86593; 86780; 86803; 93005; 93010; C9803-CS; U0003; U0005

== ENCOUNTER 2023-12-24 16:22 | Inpatient (IN) | payer OTHER ==
[2023-12-24 17:02] VITALS: BMI 18.6
[2023-12-24] MEDS ORDERED: ONDANSETRON *ODT* 4 MG TABLET SL PRN (17:33)
[2023-12-24] MEDS ORDERED: MAG HYDROX/AL HYDROX/SIMETH 30 ML UNIT-DOSE CUP PO PRN (17:33)
[2023-12-24] MEDS ORDERED: LOPERAMIDE HCL 2 MG CAPSULE PO PRN (17:33)
[2023-12-24] MEDS ORDERED: DICYCLOMINE HCL 10 MG CAPSULE PO PRN (17:33)
[2023-12-24] MEDS ORDERED: MAGNESIUM HYDROX 2400MG/30ML ORAL SUSPENSION 30 ML CUP PO PRN (17:33)
[2023-12-24] MEDS ORDERED: NICOTINE POLACRILEX 2 MG GUM BUC PRN (17:33)
[2023-12-24] MEDS ORDERED: guaiFENesin 600 MG TABLET.ER (FP) PO PRN (17:33)
[2023-12-24] MEDS ORDERED: IBUPROFEN 600 MG TABLET (FP) PO PRN (17:33)
[2023-12-24] MEDS ORDERED: hydrOXYzine PAMOATE 25 MG CAPSULE (FP) PO PRN (17:33)
[2023-12-24] MEDS ORDERED: IBUPROFEN 400 MG TABLET (FP) PO PRN (17:33)
[2023-12-24] MEDS ORDERED: NICOTINE POLACRILEX 2 MG LOZENGE BC PRN (17:33)
[2023-12-24] MEDS ORDERED: ACETAMINOPHEN 325 MG TABLET (FP) PO PRN (17:33)
[2023-12-24] MEDS ORDERED: POLYETHYLENE GLYCOL (HEALTHYLAX) 3350 17 GM PACKET PO PRN (17:33)
[2023-12-24] MEDS ORDERED: BISMUTH SUBSALICYLATE 524 MG/30 ML PO PRN (17:33)
[2023-12-24] MEDS ORDERED: BENZOCAINE/MENTHOL (CHLORASEPTIC ) LOZENGE MM PRN (17:33)
[2023-12-24] MEDS ORDERED: BENZONATATE 200 MG CAPSULE PO PRN (17:33)
[2023-12-24] MEDS ORDERED: ALBUTEROL SO4 HFA INHALER IH PRN (18:45)
[2023-12-24] MEDS: BUDESONIDE/FORMETEROL FUMARATE 160/4.5 mcg INHALER IH SCH (22:00)
[2023-12-24] MEDS: THIAMINE 100 MG TABLET PO SCH (22:00)
[2023-12-24] MEDS: CALCIUM 500MG/VIT-D 200 UNITS COMBO TABLET (FP) PO SCH (22:00)
[2023-12-24] MEDS: MELATONIN 5 MG TABLETS PO SCH (22:00)
[2023-12-25] MEDS: FOLIC ACID 1 MG TABLET (FP) PO SCH (10:25)
[2023-12-25] MEDS: PRENATAL VITAMINS W/ FOLIC ACID TABLET (FP) PO SCH (10:25)
[2023-12-25] MEDS: QUEtiapine FUMARATE 50 MG TABLET PO SCH ×2 (10:26→22:08)
[2023-12-25] MEDS: METHOCARBAMOL 500 MG TABLET PO PRN (18:23)
[2023-12-26] MEDS ORDERED: SIMETHICONE 80 MG TAB.CHEW (FP) PO PRN (10:06)
[2023-12-26] MEDS ORDERED: hydrOXYzine PAMOATE 25 MG CAPSULE (FP) PO PRN (10:31)
[2023-12-26] MEDS: GABAPENTIN 300 MG CAPSULE PO PRN (22:00)
[2023-12-26] MEDS: LIDOCAINE PATCH REMOVAL MC SCH (22:38)
[2023-12-26] MEDS: LACTULOSE 20 GM/30 ML UDC (FOR ORAL USE ONLY) PO SCH (22:38)
[2023-12-27 06:05] VITALS: RESP 16
[2023-12-27 09:57] VITALS: BP 142/80; PULSE 63; TEMP 98.2
[2023-12-27] MEDS: BICTEGRAV/EMTRICIT/TENOFOV (BIKTARVY) 50-200-25 MG TABLET PO SCH (10:19)
[2023-12-27] MEDS: LIDOCAINE 5% TOPICAL PATCH TP SCH (10:20)
[2023-12-27] MEDS: amLODIPine BESYLATE 10 MG TABLET (FP) PO SCH (10:20)
[2023-12-27] MEDS: HYDROCHLOROTHIAZIDE 12.5 MG CAPSULE (FP) PO SCH (10:20)
[2023-12-27 11:54] LABS: HEMATOCRIT 42.9 % (32.4-45.2); HEMOGLOBIN 14.3 GM/dL (10.7-15.3); MCH 32.2 pg (25.7-33.7); MCHC 33.4 g/dl (32.0-36.0); MEAN CELL VOLUME 96.4 fl (80-96); MEAN PLT VOLUME 8.1 fl (7.5-11.1); PLATELET COUNT 277 10^3/uL (134-434); RBC 4.46 M/mm3 (3.60-5.2); RDW 13.3 % (11.6-15.6); WHITE BLOOD COUNT 4.6 K/mm3 (4.0-10.0)
[2023-12-27 11:59] LABS: CHLORIDE 103 mmol/L (98-107); POTASSIUM 4.3 mmol/L (3.5-5.1); SODIUM 137 mmol/L (136-145)
[2023-12-27 12:07] LABS: ANION GAP 5 mmol/L (4-13); CO2 29 mmol/L (21-32); GLUCOSE,RANDOM 82 mg/dL (74-106)
[2023-12-27 12:08] LABS: ALBUMIN 3.6 g/dl (3.4-5.0); BLOOD UREA NITROGEN 22.2 mg/dL (7-18)
[2023-12-27 12:10] LABS: SGPT/ALT 21 U/L (13-61)
[2023-12-27 12:11] LABS: CREATININE 0.8 mg/dL (0.55-1.3); SGOT/AST 23 U/L (15-37)
[2023-12-27 12:12] LABS: BILIRUBIN,TOTAL 0.6 mg/dL (0.2-1); TOT PROT 7.8 g/dl (6.4-8.2)
[2023-12-27 12:14] LABS: ALK PHOS 112 U/L (45-117)
== END 2023-12-27 11:13 | disposition home or self-care (01) | DRG 774 ==
LOC: YASAS 16:22 → Y3N 17:47
PROVIDERS: ADMIT Allergy & Immunology; ATTEND Surgery
PROC: HZ2ZZZZ Detoxification Services for Substance Abuse Treatment (ICD-10-PCS; principal; 2023-12-24)
DX: F10.20 Alcohol dependence, uncomplicated (principal); F14.20 Cocaine dependence, uncomplicated; F12.20 Cannabis dependence, uncomplicated; F17.210 Nicotine dependence, cigarettes, uncomplicated; F31.9 Bipolar disorder, unspecified; F19.24 Other psychoactive substance dependence with psychoactive substance-induced mood disorder; Z21 Asymptomatic human immunodeficiency virus [HIV] infection status; I10 Essential (primary) hypertension; H91.92 Unspecified hearing loss, left ear; Z79.899 Other long term (current) drug therapy; Z88.1 Allergy status to other antibiotic agents; Z87.09 Personal history of other diseases of the respiratory system
CPT/HCPCS: 36415; 80053; 80178; 80305; 80307; 81025; 85027; 86593; 86780; 93005; 93010

== ENCOUNTER 2024-12-19 15:05 | Inpatient (IN) | payer OTHER ==
[2024-12-19 15:52] VITALS: BMI 18.7
[2024-12-19] MEDS ORDERED: guaiFENesin 600 MG TABLET.ER (FP) PO PRN (17:11)
[2024-12-19] MEDS ORDERED: BISMUTH SUBSALICYLATE 524 MG/30 ML PO PRN (17:11)
[2024-12-19] MEDS ORDERED: MAGNESIUM HYDROX 2400MG/30ML ORAL SUSPENSION 30 ML CUP PO PRN (17:11)
[2024-12-19] MEDS ORDERED: DICYCLOMINE HCL 10 MG CAPSULE PO PRN (17:11)
[2024-12-19] MEDS ORDERED: LOPERAMIDE HCL 2 MG CAPSULE PO PRN (17:11)
[2024-12-19] MEDS ORDERED: POLYETHYLENE GLYCOL (HEALTHYLAX) 3350 17 GM PACKET PO PRN (17:11)
[2024-12-19] MEDS ORDERED: MAG HYDROX/AL HYDROX/SIMETH 30 ML UNIT-DOSE CUP PO PRN (17:11)
[2024-12-19] MEDS ORDERED: BENZONATATE 200 MG CAPSULE PO PRN (17:11)
[2024-12-19] MEDS ORDERED: ONDANSETRON *ODT* 4 MG TABLET SL PRN (17:11)
[2024-12-19] MEDS ORDERED: NALOXONE (NARCAN) HCL 4 MG/0.1 ML SPRAY NS PRN (17:11)
[2024-12-19] MEDS ORDERED: IBUPROFEN 400 MG TABLET (FP) PO PRN (17:11)
[2024-12-19] MEDS ORDERED: NICOTINE POLACRILEX 2 MG GUM BUC PRN (17:11)
[2024-12-19] MEDS ORDERED: NICOTINE POLACRILEX 2 MG LOZENGE BC PRN (17:11)
[2024-12-19] MEDS ORDERED: IBUPROFEN 600 MG TABLET (FP) PO PRN (17:11)
[2024-12-19] MEDS ORDERED: ACETAMINOPHEN 325 MG TABLET (FP) PO PRN (17:11)
[2024-12-19] MEDS ORDERED: BENZOCAINE/MENTHOL (CHLORASEPTIC ) LOZENGE MM PRN (17:11)
[2024-12-19] MEDS ORDERED: ALBUTEROL SO4 HFA INHALER IH PRN (20:37)
[2024-12-19] MEDS: METHOCARBAMOL 500 MG TABLET PO PRN (22:19)
[2024-12-19] MEDS: MELATONIN 5 MG TABLETS PO SCH (22:19)
[2024-12-19] MEDS: THIAMINE 100 MG TABLET PO SCH (22:19)
[2024-12-19] MEDS: BUDESONIDE/FORMETEROL FUMARATE 160/4.5 mcg INHALER IH SCH (22:20)
[2024-12-19] MEDS: AMITRIPTYLINE HCL 25 MG TABLET PO ONE (22:55)
[2024-12-20] MEDS: PRENATAL VITAMINS W/ FOLIC ACID TABLET (FP) PO SCH (09:22)
[2024-12-20] MEDS: amLODIPine BESYLATE 10 MG TABLET (FP) PO SCH (09:22)
[2024-12-20 12:23] LABS: MCHC 31.4 g/dl (32.2-35.5); MEAN CELL VOLUME 104.3 fl (79.4-94.8); MEAN PLT VOLUME 9.7 fl (9.4-12.3); RDW 12.3 % (12.3-16.6)
[2024-12-20 12:34] LABS: CO2 29 mmol/L (21-32)
[2024-12-20 12:35] LABS: GLUCOSE,RANDOM 86 mg/dL (74-106)
[2024-12-20 12:37] LABS: CREATININE 0.7 mg/dL (0.55-1.3); SGOT/AST 31 U/L (15-37); SGPT/ALT 23 U/L (13-61)
[2024-12-20 12:39] LABS: TOT PROT 7.1 g/dl (6.4-8.2)
[2024-12-20 12:40] LABS: ALK PHOS 110 U/L (45-117)
[2024-12-20 21:34] VITALS: RESP 16
[2024-12-20] MEDS: QUEtiapine FUMARATE 100 MG TABLET (FP) PO SCH (22:15)
[2024-12-21 08:48] VITALS: BP 126/82; PULSE 62; TEMP 97.6
[2024-12-21] MEDS ORDERED: MIRTAZAPINE 15 MG TABLET (FP) PO SCH (22:00)
== END 2024-12-21 11:04 | disposition home or self-care (01) | DRG 774 ==
LOC: YASAS 15:05 → Y6N 17:23
PROVIDERS: ADMIT Neuromusculoskeletal Medicine & OMM; ATTEND Allergy & Immunology
PROC: HZ2ZZZZ Detoxification Services for Substance Abuse Treatment (ICD-10-PCS; principal; 2024-12-19)
DX: F10.230 Alcohol dependence with withdrawal, uncomplicated (principal); F14.20 Cocaine dependence, uncomplicated; F12.20 Cannabis dependence, uncomplicated; F17.210 Nicotine dependence, cigarettes, uncomplicated; F31.9 Bipolar disorder, unspecified; F25.9 Schizoaffective disorder, unspecified; F60.9 Personality disorder, unspecified; Z21 Asymptomatic human immunodeficiency virus [HIV] infection status; I10 Essential (primary) hypertension; G40.909 Epilepsy, unspecified, not intractable, without status epilepticus; J45.909 Unspecified asthma, uncomplicated; H54.62 Unqualified visual loss, left eye, normal vision right eye; Z79.899 Other long term (current) drug therapy; Z88.1 Allergy status to other antibiotic agents; Z59.00 Homelessness unspecified
CPT/HCPCS: 36415; 80053; 80305; 80307; 81025; 85027; 86593; 86780; 93005; 93010